=== PATIENT | male | born 1935 | race Caucasian/White ===

== ENCOUNTER 2024-03-21 23:05 | Inpatient (IN) | payer MEDICARE, OTHER ==
[2024-03-21] MEDS: SODIUM CHLORIDE 0.9% 2,000 ML IV ONE (23:59)
[2024-03-22 00:22] LABS: Basophils % (A) 0 %; Eosinophils # (A) 0.2 k/uL (0-0.7); Eosinophils % (A) 2 %; Hypochromasia Marked; Lymphocytes # (A) 0.8 k/uL (1.0-4.8); Lymphocytes % (A) 7 %; MCH 32.1 pg (25.0-35.0); MCHC 31.3 g/dL (31.0-37.0); MCV 102.8 fL (80.0-100.0); Macrocytosis Slight; Mean Platelet Volume 7.9; Monocytes # (A) 0.5 k/uL (0-1.0); Monocytes % (A) 5 %; Neutrophils # (A) 8.8 k/uL (1.3-7.7); Neutrophils % (A) 84 %; Platelet Count 220 k/uL (150-450); RBC 1.75 m/uL (4.30-5.90); RDW 13.9 % (11.5-15.5); WBC 10.4 k/uL (3.8-10.6)
--- NOTE | 2024-03-22 00:37 | CT ---
EXAM: CT Head Without Intravenous Contrast CLINICAL HISTORY: ITS.REASON CT Reason: fall TECHNIQUE: Axial computed tomography images of the head/brain without intravenous contrast. CTDI is 45.2 mGy and DLP is 1044 mGy-cm. This CT exam was performed using one or more of the following dose reduction techniques: automated exposure control, adjustment of the mA and/or kV according to patient size, and/or use of iterative reconstruction technique. COMPARISON: No relevant prior studies available. FINDINGS: Brain: Age-related cerebral volume loss. Periventricular and subcortical white matter hypoattenuation, consistent with chronic microangiopathy. No acute intracranial hemorrhage. No midline shift or mass effect. Ventricles: Unremarkable. No ventriculomegaly. Bones/joints: Unremarkable. No acute fracture. Soft tissues: Unremarkable. Sinuses: Unremarkable as visualized. No acute sinusitis. Mastoid air cells: Unremarkable as visualized. No mastoid effusion. IMPRESSION: No acute intracranial hemorrhage. No midline shift or mass effect. EXAM: CT Cervical Spine Without Intravenous Contrast CLINICAL HISTORY: ITS.REASON CT Reason: fall TECHNIQUE: Axial computed tomography images of the cervical spine without intravenous contrast. CTDI is 15.6 mGy and DLP is 421.2 mGy-cm. This CT exam was performed using one or more of the following dose reduction techniques: automated exposure control, adjustment of the mA and/or kV according to patient size, and/or use of iterative reconstruction technique. COMPARISON: No relevant prior studies available. FINDINGS: The vertebral body heights are maintained. The craniocervical junction is intact. The atlanto-dens interval is maintained. The dens is intact. There is no spondylolisthesis. Multilevel cervical spondylosis and degenerative disc disease. Straightening of the cervical lordosis. The unenhanced neck soft tissues are grossly unremarkable. The visualized lung apices are grossly clear. IMPRESSION: No acute fracture or subluxation of the cervical spine.
[2024-03-22 00:42] LABS: ALT 40 U/L (4-49); AST 27 U/L (17-59); African American GFR (CKD) 28 (>60 ml/min/1.73 sqM); Albumin 3.2 g/dL (3.5-5.0); Alkaline Phosphatase 91 U/L (38-126); Anion Gap 7 mmol/L; Blood Urea Nitrogen 41 mg/dL (9-20); Calcium 8.5 mg/dL (8.4-10.2); Carbon Dioxide 24 mmol/L (22-30); Chloride 111 mmol/L (98-107); Glucose 135 mg/dL (74-99); Non-African American GFR(CKD) 24 (>60 ml/min/1.73 sqM); Potassium 4.2 mmol/L (3.5-5.1); Sodium 142 mmol/L (137-145); Total Bilirubin 0.8 mg/dL (0.2-1.3); Total Protein 5.5 g/dL (6.3-8.2)
[2024-03-22 00:45] LABS: HGB 5.6 gm/dL (13.0-17.5)
--- NOTE | 2024-03-22 00:54 | XR ---
EXAM: XR Left Hip With Pelvis When Performed, 1 View CLINICAL HISTORY: ITS.REASON XR Reason: fall TECHNIQUE: Frontal view of the left hip with pelvis when performed. COMPARISON: No relevant prior studies available. FINDINGS: Bones/joints: Diffuse osseous demineralization. Osteophytic spurring of the acetabulum. No acute fracture or subluxation. Soft tissues: Surgical clips in the LEFT inguinal region. IMPRESSION: No acute fracture or subluxation.
[2024-03-22] MEDS ORDERED: MORPHINE SULFATE 4 MG/ML SYRINGE IV PRN (01:09)
[2024-03-22] MEDS ORDERED: NALOXONE 0.4 MG/ML 1 ML VIAL IV PRN (01:09)
--- NOTE | 2024-03-22 01:15 | ED ---
Weakness HPI - General Chief complaint: Fall Stated complaint: Fall, UTI Time Seen by Provider: 03/21/24 23:20 Source: patient, RN notes reviewed, old records reviewed Mode of arrival: wheelchair Limitations: no limitations - History of Present Illness Initial comments: This is an 88-year-old male to the ER today. He is presenting to us for evaluation regards to weakness multiple recent falls left hip pain, patient is recently diagnosed with urinary tract infection currently on antibiotics MD Complaint: generalized weakness, lack of energy, difficulty walking -: days(s) Location: generalized Severity scale (1-10): 5 Consistency: intermittent Improves with: none Worsens with: none Context: recent illness, history of similar Associated Symptoms: confusion (Dementia) - Related Data Home Medications Medication Instructions Recorded Confirmed Aspirin [Adult Low Dose Aspirin EC] 81 mg PO DAILY 03/22/24 03/22/24 Clopidogrel [Plavix] 75 mg PO DAILY 03/22/24 03/22/24 Finasteride [Proscar] 5 mg PO DAILY 03/22/24 03/22/24 Furosemide [Lasix] 40 mg PO BID@0900,1700 03/22/24 03/22/24 Losartan [Cozaar] 25 mg PO DAILY 03/22/24 03/22/24 Memantine [Namenda] 10 mg PO BID 03/22/24 03/22/24 Metoprolol Succinate (ER) [Toprol 25 mg PO DAILY 03/22/24 03/22/24 XL] Midodrine [ProAmatine] 5 mg PO BID 03/22/24 03/22/24 Potassium Chloride ER [K-Dur 20] 20 meq PO DAILY 03/22/24 03/22/24 Rosuvastatin Calcium 40 mg PO DAILY 03/22/24 03/22/24 cefUROXime axetiL [Ceftin] 500 mg PO BID 03/22/24 03/22/24 Allergies Allergy/AdvReac Type Severity Reaction Status Date / Time alprazolam [From Xanax] AdvReac Confusion Verified 03/22/24 08:13 clonazepam [From Klonopin] AdvReac Confusion Verified 03/22/24 08:13 haloperidol [From Haldol] AdvReac Confusion Verified 03/22/24 08:13 lorazepam [From Ativan] AdvReac Confusion Verified 03/22/24 08:13 Review of Systems ROS Statement: Those systems with pertinent positive or pertinent negative responses have been documented in the HPI. ROS Other: All systems not noted in ROS Statement are negative. General Exam General appearance: alert, in no apparent distress, anxious Head exam: Present: atraumatic, normocephalic, normal inspection Eye exam: Present: normal appearance, PERRL, EOMI. Absent: scleral icterus, conjunctival injection, periorbital swelling ENT exam: Present: normal exam, mucous membranes moist Neck exam: Present: normal inspection. Absent: tenderness, meningismus, lymphadenopathy Respiratory exam: Present: normal lung sounds bilaterally. Absent: respiratory distress, wheezes, rales, rhonchi, stridor Cardiovascular Exam: Present: regular rate, normal rhythm, normal heart sounds. Absent: systolic murmur, diastolic murmur, rubs, gallop, clicks GI/Abdominal exam: Present: soft, normal bowel sounds. Absent: distended, tenderness, guarding, rebound, rigid Extremities exam: Present: normal inspection, full ROM, normal capillary refill. Absent: tenderness, pedal edema, joint swelling, calf tenderness Back exam: Present: normal inspection Neurological exam: Present: alert, oriented X3, CN II-XII intact Psychiatric exam: Present: normal affect, normal mood Skin exam: Present: warm, dry, intact, normal color. Absent: rash Course Vital Signs 03/21/24 03/21/24 03/22/24 23:09 23:47 00:45 Temperature 98.6 F Pulse Rate 69 61 60 Respiratory 18 22 18 Rate Blood Pressure 90/57 86/34 74/34 O2 Sat by Pulse 100 98 95 Oximetry 03/22/24 03/22/24 03/22/24 01:00 01:36 02:15 Temperature Pulse Rate 70 71 71 Respiratory 18 18 18 Rate Blood Pressure 87/44 88/44 O2 Sat by Pulse 96 97 95 Oximetry - Reevaluation(s) Reevaluation #1: 03/22/24 01:14 Records reviewed Reevaluation #2: 03/22/24 01:14 Symptoms unchanged Reevaluation #3: 03/22/24 01:14 Patient informed of results and questions answered Reevaluation #4: Was pt. sent in by a medical professional or institution (, PA, METAL REFINER, urgent care, hospital, or prison...) When possible be specific @ -no Did you speak to anyone other than the patient for history (EMS, parent, family, police, friend...)? What history was obtained from this source @ -no Did you review nursing and triage notes (agree or disagree)? Why? @ -agree Are old charts reviewed (outside hosp., previous admission, EMS record, old EKG, old radiological studies, urgent care reports/EKG's, prison records)? Report findings @ -yes Differential Diagnosis (chest pain, altered mental status, abdominal pain women, abdominal pain men, vaginal bleeding, weakness, fever, dyspnea, syncope, headache, dizziness, GI bleed, back pain, seizure, CVA, palpatations, mental health, musculoskeletal)? @ -prior EKG interpreted by me (3pts min.). @ -yes X-rays interpreted by me (1pt min.). @ -yes negative for acute disease CT interpreted by me (1pt min.). @ -Yes negative for acute disease U/S interpreted by me (1pt. min.). @ -no What testing was considered but not performed or refused? (CT, X-rays, U/S, labs)? Why? @ -none What meds were considered but not given or refused? Why? @ -none Did you discuss the management of the patient with other professionals (professionals i.e. , PA, METAL REFINER, lab, RT, psych nurse, psychologist social, mass spectrometry manager, teacher, retirement officer, case packer and sealer)? Give summary @ -no Was smoking cessation discussed for >3mins.? @ -no Was critical care preformed (if so, how long)? @ -yes31 Were there social determinants of health that impacted care today? How? (Homelessness, low income, unemployed, alcoholism, drug addiction, transportation, low edu. Level, literacy, decrease access to med. care, skilled nursing, rehab)? @ -none Was there de-escalation of care discussed even if they declined (Discuss DNR or withdrawal of care, Hospice)? DNR status @ -no What co-morbidities impacted this encounter? (DM, HTN, Smoking, COPD, CAD, Cancer, CVA, ARF, Chemo, Hep., AIDS, mental health diagnosis, sleep apnea, morbid obesity)? @ -none Was patient admitted / discharged? Hospital course, mention meds given and route, prescriptions, significant lab abnormalities, going to OR and other [facility] info. @ - 88 male to ER for weakness and significant history of recent falls and increasing weakness for a few days now. Inpatient hospitalization recently for urinary tract infection and patient found to have significant anemia here in the emergency department. No history of GI bleed blood in the stool no tarry stools. Patient will will admit for transfusion and continued treatment of UTI Admitted anemia Undiagnosed new problem with uncertain prognosis? @ -no Drug Therapy requiring intensive monitoring for toxicity (Heparin, Nitro, Insulin, Cardizem)? @ -no Were any procedures done? @ -no Diagnosis/symptom? @ - Acute, or Chronic, or Acute on Chronic? @ -Acute Uncomplicated (without systemic symptoms) or Complicated (systemic symptoms)? @ -Complicated Side effects of treatment? @ -no Exacerbation, Progression, or Severe Exacerbation? @ -exacerbation Poses a threat to life or bodily function? How? (Chest pain, [place], [place], pneumonia, PE, COPD, DKA, ARF, appy, cholecystitis, CVA, Diverticulitis, Homicidal, Suicidal, threat to staff... and all critical care pts) @ -yes extremes of age Reevaluation #5: Differential Weakness: Hypoglycemia, shock, sepsis, hyponatremia, anemia, infection, [place], ETOH, adverse medicine reaction, overdose, stroke, this is not meant to be an all-inclusive list. - Consultations Consultation #1: Spoke with [facility] who agrees to admit this patient Medical Decision Making - Medical Decision Making 88 male to ER for weakness and significant history of recent falls and increasing weakness for a few days now. Inpatient hospitalization recently for urinary tract infection and patient found to have significant anemia here in the emergency department. No history of GI bleed blood in the stool no tarry stools. Patient will will admit for transfusion and continued treatment of UTI - Lab Data Result diagrams: 03/23/24 00:30 03/23/24 00:30 Lab Results 03/21/24 03/21/24 Range/Units 23:51 23:51 WBC 10.4 (3.8-10.6) k/uL RBC 1.75 L (4.30-5.90) m/uL Hgb 5.6 L* (13.0-17.5) gm/dL Hct 18.0 L* (39.0-53.0) % MCV 102.8 H (80.0-100.0) fL MCH 32.1 (25.0-35.0) pg MCHC 31.3 (31.0-37.0) g/dL RDW 13.9 (11.5-15.5) % Plt Count 220 (150-450) k/uL MPV 7.9 Neutrophils % 84 % Lymphocytes % 7 % Monocytes % 5 % Eosinophils % 2 % Basophils % 0 % Neutrophils # 8.8 H (1.3-7.7) k/uL Lymphocytes # 0.8 L (1.0-4.8) k/uL Monocytes # 0.5 (0-1.0) k/uL Eosinophils # 0.2 (0-0.7) k/uL Basophils # 0.0 (0-0.2) k/uL Hypochromasia Marked Macrocytosis Slight Sodium 142 (137-145) mmol/L Potassium 4.2 (3.5-5.1) mmol/L Chloride 111 H (98-107) mmol/L Carbon Dioxide 24 (22-30) mmol/L Anion Gap 7 mmol/L BUN 41 H (9-20) mg/dL Creatinine 2.35 H (0.66-1.25) mg/dL Est GFR (CKD-EPI)AfAm 28 (>60 ml/min/1.73 sqM) Est GFR (CKD-EPI)NonAf 24 (>60 ml/min/1.73 sqM) Glucose 135 H (74-99) mg/dL Calcium 8.5 (8.4-10.2) mg/dL Total Bilirubin 0.8 (0.2-1.3) mg/dL AST 27 (17-59) U/L ALT 40 (4-49) U/L Alkaline Phosphatase 91 (38-126) U/L Total Protein 5.5 L (6.3-8.2) g/dL Albumin 3.2 L (3.5-5.0) g/dL - EKG Data -: EKG Interpreted by Me - Radiology Data Radiology results: report reviewed (CT brain C-spine x-ray hip negative for traumatic injury), image reviewed Critical Care Time Critical Care Time: Yes Total Critical Care Time: 31 Disposition Clinical Impression: Fall, Weakness, Anemia, UTI (urinary tract infection) Disposition: ADMITTED IP TO THIS [facility] Condition: Serious Is patient prescribed a controlled substance at d/c from ED?: No Time of Disposition: 01:00
[2024-03-22] MEDS: SODIUM CHLORIDE 0.9% 1,000 ML IV SCH ×2 (01:54)
[2024-03-22] MEDS: SODIUM CHLORIDE 0.9% 500 ML 500 ML IV STA (01:54)
[2024-03-22] MEDS: MIDODRINE 5 MG TAB PO SCH (07:46)
[2024-03-22 08:11] LABS: Appearance,Urine Clear (Clear); Bacteria,Urine Occasional /hpf; Bilirubin,Urine Negative (Negative); Blood,Urine Small (Negative); Color,Urine Light Yellow; Glucose,Urine (UA) Negative (Negative); Ketones,Urine Negative (Negative); Leukocyte Esterase,Urine Negative (Negative); Mucus,Urine Rare /hpf; Nitrite,Urine Negative (Negative); PH, Urine 5.5 (5.0-8.0); Protein,Urine 1+ (Negative); RBC,Urine 1 /hpf (0-5); Specific Gravity,Urine 1.016 (1.001-1.035); Urobilinogen,Urine <2.0 mg/dL (<2.0); WBC,Urine 1 /hpf (0-5)
[2024-03-22] MEDS: FINASTERIDE 5 MG TAB PO SCH (10:18)
[2024-03-22] MEDS: ATORVASTATIN 80 MG TAB PO SCH (11:52)
[2024-03-22] MEDS: FUROSEMIDE 40 MG TAB PO SCH (11:52)
[2024-03-22] MEDS: METOPROLOL SUCCINATE (ER) 25 MG TAB.ER.24H PO SCH (11:52)
--- NOTE | 2024-03-22 13:34 | P.GSCN ---
History of Present Illness Consult date: 03/22/24 History of present illness: CHIEF COMPLAINT: Fall and weakness HISTORY OF PRESENT ILLNESS: This is a 88-year-old male who presented the hospital with weakness and fall. He was found to have a hemoglobin of 5.6. Patient is confused. Family member at bedside reporting no blood in the stools and no black stools. She denies any nausea and vomiting. No evidence of co ffee-ground emesis or hematemesis. Patient denies any abdominal pain. There is no prior history of EGD or colonoscopy. He has received a total of 3 units of blood. Patient has been hypotensive and has received both blood transfusion and IV fluid bolus. Repeat hemoglobin pending. Patient is on Plavix at home. Last dose of Plavix was March 20. Patient seen and examined with Dr. Hernandez PAST MEDICAL HISTORY: Hyperlipidemia ,hypertension, BPH PAST SURGICAL HISTORY: See below MEDICATIONS: See below ALLERGIES: See below SOCIAL HISTORY: No illicit drug use. REVIEW OF SYSTEMS: CONSTITUTIONAL: Denies fever or chills. HEENT: Denies blurred vision, vision changes, or eye pain. Denies hemoptysis CARDIOVASCULAR: Denies chest pain or pressure. RESPIRATORY: No shortness of breath. GASTROINTESTINAL: See HPI for pertinent findings HEMATOLOGIC: Denies bleeding disorders. GENITOURINARY: Denies any blood in urine or increased urinary frequency. SKIN: Denies pruitis. Denies rash. PHYSICAL EXAM: VITAL SIGNS: Reviewed GENERAL: Well-developed in no acute distress. HEENT: No sclera icterus. Extraocular movements grossly intact. Moist buccal mucosa. Head is atraumatic, normocephalic. No nasal drainage. ABDOMEN: Soft. Nondistended. Nontender NEUROLOGIC: Alert and oriented. Cranial nerves II through XII grossly intact. LABORATORY DATA: WBC 10.4 Hgb 5.6 platelets 220 Sodium 142 potassium 4.2 creatinine 2.35 BUN 41 IMAGING: CT scan of the head and cervical spine reports no acute intracranial hemorrhage. No acute fracture cervical spine ASSESSMENT: 1. Anemia concerns for possible GI bleed. Patient on Plavix at home. PLAN: -Patient scheduled for EGD and colonoscopy on Tuesday, March 26, [address] Hernandez -Continue to hold Plavix -Add IV Protonix -Continue to monitor for any signs or symptoms of bleeding -Continue to monitor hemoglobin Physician Pipe Setter note has been reviewed by physician. Signing provider agrees with the documented findings, assessment, and plan of care. Past Medical History Past Medical History: Coronary Artery Disease (CAD), Heart Failure, COPD, Dementia, Eye Disorder, Hyperlipidemia, Myocardial Infarction ([place]) Additional Past Medical History / Comment(s): Macular degeneration, [place] X2 Last Myocardial Infarction Date:: 1988 History of Any Multi-Drug Resistant Organisms: None Reported Past Surgical History: Coronary Bypass/CABG, Hernia Repair, Pacemaker Additional Past Surgical History / Comment(s): Double bypass 1979, triple bypass in 1989, AAA repair in 2000, pacermaker in 2001, hernia repair in 2008, bilateral endarterectomies 2019 Past Anesthesia/Blood Transfusion Reactions: No Reported Reaction Type of Cardiac Device: Permanent Pacemaker Device Placement Date:: 2001 Past Psychological History: No Psychological Hx Reported Smoking Status: Former smoker Past Alcohol Use History: None Reported Past Drug Use History: None Reported Medications and Allergies Home Medications Medication Instructions Recorded Confirmed Type Aspirin [Adult Low Dose Aspirin EC] 81 mg PO DAILY 03/22/24 03/22/24 History Clopidogrel [Plavix] 75 mg PO DAILY 03/22/24 03/22/24 History Finasteride [Proscar] 5 mg PO DAILY 03/22/24 03/22/24 History Furosemide [Lasix] 40 mg PO BID@0900,1700 03/22/24 03/22/24 History Losartan [Cozaar] 25 mg PO DAILY 03/22/24 03/22/24 History Memantine [Namenda] 10 mg PO BID 03/22/24 03/22/24 History Metoprolol Succinate (ER) [Toprol 25 mg PO DAILY 03/22/24 03/22/24 History XL] Midodrine [ProAmatine] 5 mg PO BID 03/22/24 03/22/24 History Potassium Chloride ER [K-Dur 20] 20 meq PO DAILY 03/22/24 03/22/24 History Rosuvastatin Calcium 40 mg PO DAILY 03/22/24 03/22/24 History cefUROXime axetiL [Ceftin] 500 mg PO BID 03/22/24 03/22/24 History Allergies Allergy/AdvReac Type Severity Reaction Status Date / Time alprazolam [From Xanax] AdvReac Confusion Verified 03/22/24 08:13 clonazepam [From Klonopin] AdvReac Confusion Verified 03/22/24 08:13 haloperidol [From Haldol] AdvReac Confusion Verified 03/22/24 08:13 lorazepam [From Ativan] AdvReac Confusion Verified 03/22/24 08:13 Surgical - Exam Vital Signs Temp Pulse Resp BP Pulse Ox 98.6 F 69 18 90/57 100 03/21/24 23:09 03/21/24 23:09 03/21/24 23:09 03/21/24 23:09 03/21/24 23:09 Results - Labs 03/21/24 23:51 03/21/24 23:51 Abnormal Lab Results - Last 24 Hours (Table) 03/21/24 03/21/24 03/22/24 Range/Units 23:51 23:51 01:15 RBC 1.75 L (4.30-5.90) m/uL Hgb 5.6 L* (13.0-17.5) gm/dL Hct 18.0 L* (39.0-53.0) % MCV 102.8 H (80.0-100.0) fL Neutrophils # 8.8 H (1.3-7.7) k/uL Lymphocytes # 0.8 L (1.0-4.8) k/uL Chloride 111 H (98-107) mmol/L BUN 41 H (9-20) mg/dL Creatinine 2.35 H (0.66-1.25) mg/dL Glucose 135 H (74-99) mg/dL Total Protein 5.5 L (6.3-8.2) g/dL Albumin 3.2 L (3.5-5.0) g/dL Urine Protein (Negative) Urine Blood (Negative) Urine Bacteria (None) /hpf Urine Mucus (None) /hpf Crossmatch See Detail 03/22/24 Range/Units 07:52 RBC (4.30-5.90) m/uL Hgb (13.0-17.5) gm/dL Hct (39.0-53.0) % MCV (80.0-100.0) fL Neutrophils # (1.3-7.7) k/uL Lymphocytes # (1.0-4.8) k/uL Chloride (98-107) mmol/L BUN (9-20) mg/dL Creatinine (0.66-1.25) mg/dL Glucose (74-99) mg/dL Total Protein (6.3-8.2) g/dL Albumin (3.5-5.0) g/dL Urine Protein 1+ H (Negative) Urine Blood Small H (Negative) Urine Bacteria Occasional H (None) /hpf Urine Mucus Rare H (None) /hpf Crossmatch Diabetes panel 03/21/24 Range/Units 23:51 Sodium 142 (137-145) mmol/L Potassium 4.2 (3.5-5.1) mmol/L Chloride 111 H (98-107) mmol/L Carbon Dioxide 24 (22-30) mmol/L BUN 41 H (9-20) mg/dL Creatinine 2.35 H (0.66-1.25) mg/dL Glucose 135 H (74-99) mg/dL Calcium 8.5 (8.4-10.2) mg/dL AST 27 (17-59) U/L ALT 40 (4-49) U/L Alkaline Phosphatase 91 (38-126) U/L Total Protein 5.5 L (6.3-8.2) g/dL Albumin 3.2 L (3.5-5.0) g/dL Calcium panel 03/21/24 Range/Units 23:51 Calcium 8.5 (8.4-10.2) mg/dL Albumin 3.2 L (3.5-5.0) g/dL Pituitary panel 03/21/24 Range/Units 23:51 Sodium 142 (137-145) mmol/L Potassium 4.2 (3.5-5.1) mmol/L Chloride 111 H (98-107) mmol/L Carbon Dioxide 24 (22-30) mmol/L BUN 41 H (9-20) mg/dL Creatinine 2.35 H (0.66-1.25) mg/dL Glucose 135 H (74-99) mg/dL Calcium 8.5 (8.4-10.2) mg/dL Adrenal panel 03/21/24 Range/Units 23:51 Sodium 142 (137-145) mmol/L Potassium 4.2 (3.5-5.1) mmol/L Chloride 111 H (98-107) mmol/L Carbon Dioxide 24 (22-30) mmol/L BUN 41 H (9-20) mg/dL Creatinine 2.35 H (0.66-1.25) mg/dL Glucose 135 H (74-99) mg/dL Calcium 8.5 (8.4-10.2) mg/dL Total Bilirubin 0.8 (0.2-1.3) mg/dL AST 27 (17-59) U/L ALT 40 (4-49) U/L Alkaline Phosphatase 91 (38-126) U/L Total Protein 5.5 L (6.3-8.2) g/dL Albumin 3.2 L (3.5-5.0) g/dL
[2024-03-22] MEDS: PANTOPRAZOLE 40 MG/10 ML VIAL IVP SCH (14:25)
[2024-03-22] MEDS: IOPAMIDOL CONTRAST (ORAL USE) VIAL PO PRN (14:57)
[2024-03-22 16:35] LABS: HCT 34.2 % (39.0-53.0); Hypochromasia Marked; MCH 31.7 pg (25.0-35.0); MCHC 31.5 g/dL (31.0-37.0); MCV 100.8 fL (80.0-100.0); Macrocytosis Slight; Mean Platelet Volume 7.8; Platelet Count 150 k/uL (150-450); RBC 3.39 m/uL (4.30-5.90); RDW 15.2 % (11.5-15.5); WBC 10.2 k/uL (3.8-10.6)
[2024-03-22 16:38] LABS: HGB 10.8 gm/dL (13.0-17.5)
--- NOTE | 2024-03-22 17:02 | P.CONS ---
History of Present Illness - Reason for Consult Consult date: 03/22/24 rehab recommendations - Chief Complaint debility - History of Present Illness Mr Han is an 88 y/o male who lives with his in a SS home with 3 MICHELLE b/l HR. Patient noted to have some falls recently. Patient was modified independent with ambulation using a cane, has a walker he has not been using. He needed assistance from his with ADLs. He does not drive, drives. Children live local. Patient presented to the hospital on 03/22/24 with complaints of weakness and recurrent falls. He was on abx for UTI outpatient. He had left hip pain after fall. He had CT head and C spine no acute process. Xray L hip negative for acute process. Surgical tea was consulted due to hgb 5.6, had 3 units PRBCs transfused. He has been having issues with hypotension. He is getting a CT scan today. He is planned for EGD and colonscopy on Tuesday PM&R consulted for rehab recommendations, patient is pending therapy evaluations. 03/22: Patient going down for cat scan, feels weak, has a cough. Review of Systems negative unless stated above in HPI Past Medical History Past Medical History: Coronary Artery Disease (CAD), Heart Failure, COPD, Dementia, Eye Disorder, Hyperlipidemia, Myocardial Infarction (AR) Additional Past Medical History / Comment(s): Macular degeneration, AR X2 Last Myocardial Infarction Date:: 1988 History of Any Multi-Drug Resistant Organisms: None Reported Past Surgical History: Coronary Bypass/CABG, Hernia Repair, Pacemaker Additional Past Surgical History / Comment(s): Double bypass 1979, triple bypass in 1989, AAA repair in 2000, pacermaker in 2001, hernia repair in 2008, bilateral endarterectomies 2019 Past Anesthesia/Blood Transfusion Reactions: No Reported Reaction Type of Cardiac Device: Permanent Pacemaker Device Placement Date:: 2001 Past Psychological History: No Psychological Hx Reported Smoking Status: Former smoker Past Alcohol Use History: None Reported Past Drug Use History: None Reported Medications and Allergies Home Medications Medication Instructions Recorded Confirmed Type Aspirin [Adult Low Dose Aspirin EC] 81 mg PO DAILY 03/22/24 03/22/24 History Clopidogrel [Plavix] 75 mg PO DAILY 03/22/24 03/22/24 History Finasteride [Proscar] 5 mg PO DAILY 03/22/24 03/22/24 History Furosemide [Lasix] 40 mg PO BID@0900,1700 03/22/24 03/22/24 History Losartan [Cozaar] 25 mg PO DAILY 03/22/24 03/22/24 History Memantine [Namenda] 10 mg PO BID 03/22/24 03/22/24 History Metoprolol Succinate (ER) [Toprol 25 mg PO DAILY 03/22/24 03/22/24 History XL] Midodrine [ProAmatine] 5 mg PO BID 03/22/24 03/22/24 History Potassium Chloride ER [K-Dur 20] 20 meq PO DAILY 03/22/24 03/22/24 History Rosuvastatin Calcium 40 mg PO DAILY 03/22/24 03/22/24 History cefUROXime axetiL [Ceftin] 500 mg PO BID 03/22/24 03/22/24 History Allergies Allergy/AdvReac Type Severity Reaction Status Date / Time alprazolam [From Xanax] AdvReac Confusion Verified 03/22/24 08:13 clonazepam [From Klonopin] AdvReac Confusion Verified 03/22/24 08:13 haloperidol [From Haldol] AdvReac Confusion Verified 03/22/24 08:13 lorazepam [From Ativan] AdvReac Confusion Verified 03/22/24 08:13 Physical Exam Vitals: Vital Signs Temp Pulse Pulse Resp BP BP Pulse Ox 03/22/24 12:58 63 15 103/57 97 03/22/24 11:34 66 17 108/57 96 03/22/24 10:04 66 18 110/58 95 03/22/24 09:44 70 16 117/65 98 03/22/24 09:34 71 17 93/44 97 03/22/24 08:43 67 17 95/57 97 03/22/24 07:45 97.6 F 66 16 101/53 100 03/22/24 06:25 97.9 F 67 17 91/49 98 03/22/24 06:05 97.4 F L 64 16 75/38 100 03/22/24 04:17 97.5 F L 60 17 85/45 100 03/22/24 03:25 97.6 F 63 18 73/40 100 03/22/24 03:05 97.4 F L 66 19 76/41 100 03/22/24 02:56 97.6 F 65 18 80/43 98 03/22/24 02:36 97.5 F L 68 20 79/42 99 03/22/24 02:15 71 18 95 03/22/24 01:36 71 18 88/44 97 03/22/24 01:00 70 18 87/44 96 03/22/24 00:45 60 18 74/34 95 03/21/24 23:47 61 22 86/34 98 03/21/24 23:09 98.6 F 69 18 90/57 100 Intake and Output 03/22/24 03/22/24 03/22/24 06:59 14:59 22:59 Intake Total 550 974 Output Total 200 250 Balance 350 724 Intake: Oral 240 354 Blood Product 310 620 Rc As-1 Unit 0 310 [id number] Rc As-1 Unit 310 [id number] Rc As-1 Unit 310 [id number] Output: Urine 200 250 Other: Voiding Method External Catheter External Catheter Weight 92.986 kg General: WDWN, male, laying in bed, NAD, and daughter at bedside Head: Normocephalic, atraumatic. Eyes: Symmetric Ears: Symmetric. Hearing within normal limits. Mouth: Clear. Cardiac: No acute cardiac distress, Calves supple, non tender, + LE edema Lungs: Breathing comfortably on O2 via NC, + cough. Chest symmetric. Abdomen: Soft, nontender, abdominal deformity from prior surgery, + hernia Extremities: Arthritic changes consistent with age. Neurological: Alert, [place] Speech is clear and fluent without paraphasic errors Generalized weakness, moves UE to antigravity Skin: Skin intact where visible to head, neck, and bilateral upper and lower extremities Psych: Calm, cooperative Results CBC & Chem 7: 03/22/24 15:51 03/21/24 23:51 Labs: Abnormal Lab Results - Last 24 Hours (Table) 03/21/24 03/21/24 03/22/24 Range/Units 23:51 23:51 01:15 RBC 1.75 L (4.30-5.90) m/uL Hgb 5.6 L* (13.0-17.5) gm/dL Hct 18.0 L* (39.0-53.0) % MCV 102.8 H (80.0-100.0) fL Neutrophils # 8.8 H (1.3-7.7) k/uL Lymphocytes # 0.8 L (1.0-4.8) k/uL Chloride 111 H (98-107) mmol/L BUN 41 H (9-20) mg/dL Creatinine 2.35 H (0.66-1.25) mg/dL Glucose 135 H (74-99) mg/dL Total Protein 5.5 L (6.3-8.2) g/dL Albumin 3.2 L (3.5-5.0) g/dL Urine Protein (Negative) Urine Blood (Negative) Urine Bacteria (None) /hpf Urine Mucus (None) /hpf Crossmatch See Detail 03/22/24 Range/Units 07:52 RBC (4.30-5.90) m/uL Hgb (13.0-17.5) gm/dL Hct (39.0-53.0) % MCV (80.0-100.0) fL Neutrophils # (1.3-7.7) k/uL Lymphocytes # (1.0-4.8) k/uL Chloride (98-107) mmol/L BUN (9-20) mg/dL Creatinine (0.66-1.25) mg/dL Glucose (74-99) mg/dL Total Protein (6.3-8.2) g/dL Albumin (3.5-5.0) g/dL Urine Protein 1+ H (Negative) Urine Blood Small H (Negative) Urine Bacteria Occasional H (None) /hpf Urine Mucus Rare H (None) /hpf Crossmatch Assessment and Plan Assessment: # Debility with multiple recent fall and left hip pain -imaging negative for acute process - fall precautions # Anemia s/p transfusion -pending EGD and colonoscopy -CT scan pending #Impaired gait and ADLs # Recent UTI -started on abx outpatient # Comorbidities: HLD, Dementia, BPH, CAD, pacemaker, HF, [place] x2, macular degeneration, HLD # Your medical dx and management Dispo: Patient is pending further medical work up and therapy evaluations. Patient at this time does not have a qualifying diagnosis for IPR, but could qualify for KERI. We will continue to follow his case as he is still in the medical work up phase in case this changes. Patient seen and examined by Carmen Marte PA-C in collaboration with Dr Taylor Thank you for consulting our services.
--- NOTE | 2024-03-22 17:18 | P.HPIM ---
History of Present Illness H&P Date: 03/22/24 Chief Complaint: Increased weakness decreased appetite This is a 88-year-old patient, follows with Dr. Radu Qiu. Most of the history is obtained by the at the bedside. Patient was seen recently discharged from [facility] on [facility] 4 days ago. He was there for UTI. Patient appetite has decreased. Patient progressively became more weak. At baseline patient does have a lift chair. Was not even able to get up and the could not help him. About a week ago he had taken a fall and had a lot of bleeding. At [facility] he was found to have anemia but not enough for blood transfusion. When he presented a hemoglobin was 5.6. 3 units of blood was ordered from the ER. No overt evidence of bleeding or black stools or blood per rectum noted here. Today actually ate a bit better. Patient has underlying dementia. Delirious today. Patient has a pacemaker and has a stent in 2020. Review of systems difficult to obtain as patient is somewhat confused. Most of the history obtained above from the . Social history: Former smoker. Lives with his . Physical examination: VITAL SIGNS: 97.6, 67, 17, 95/57, 97% on 3 L GENERAL: BMI 32.1, laying in bed, somewhat delirious. EYES: Pupils equal. Conjunctiva rashaad l. HEENT: External appearance of nose and ears normal, oral cavity grossly normal. NECK: JVD unable to assess raised; masses not palpable. HEART: First and second heart sounds are normal some edema. LUNGS: Respiratory rate normal; decreased breath sounds n. ABDOMEN: Soft, distended nontender, liver spleen not palpable, no masses palpable. PSYCH: Patient may answer occasional question otherwise delirious l. MUSCULOSKELETAL:No Clubbing/cyanosis;muscles-grossly intact NEUROLOGICAL: Cranial nerves grossly intact; no facial asymmetry, power and sensation grossly intact. LYMPHATICS: No lymph nodes palpable in the axilla and neck INVESTIGATIONS, reviewed in the clinical context: March 22: White count 10.2 hemoglobin 10.8 platelets 150 March 21: White count 10.4 hemoglobin 5.6 hemoglobin 220 potassium 4.2 BUN [address] head cervical spine: Negative for fracture Assessment plan: -Acute severe blood loss anemia. Patient has significant bleeding about a week ago. After a fall. Required stitches to the arm. He was admitted to [facility] for UTI. Now presents with hemoglobin of 5.6. No further bleeding reported. 3 units of blood ordered from the ER. -Acute delirium in a patient with dementia multifactorial Will try Risperdal at night. Discussed with the at length. -Late onset Alzheimer's dementia Namenda -Rule out other source of bleed. GI services not available in the hospital. General surgery consulted -Coronary artery disease prior history of stent in February 2021. And coronary bypass in 1987 9089 Hold off aspirin and Plavix for now -Permanent pacemaker -Chronic congestive heart failure, EF not known -COPD no prior smoker -Hyperlipidemia -DVT prophylaxis SCD -Full code - is a decision maker for the patient. Does not have any official papers. Asked to do so. Care was discussed at length with the patient. Questions answered. Dr Hernandez consulted. Past Medical History Past Medical History: Coronary Artery Disease (CAD), Heart Failure, COPD, Dementia, Eye Disorder, Hyperlipidemia, Myocardial Infarction (AR) Additional Past Medical History / Comment(s): Macular degeneration, AR X2 Last Myocardial Infarction Date:: 1988 History of Any Multi-Drug Resistant Organisms: None Reported Past Surgical History: Coronary Bypass/CABG, Hernia Repair, Pacemaker Additional Past Surgical History / Comment(s): Double bypass 1979, triple bypass in 1989, AAA repair in 2000, pacermaker in 2001, hernia repair in 2008, bilateral endarterectomies 2019 Past Anesthesia/Blood Transfusion Reactions: No Reported Reaction Type of Cardiac Device: Permanent Pacemaker Device Placement Date:: 2001 Past Psychological History: No Psychological Hx Reported Smoking Status: Former smoker Past Alcohol Use History: None Reported Past Drug Use History: None Reported Medications and Allergies Home Medications Medication Instructions Recorded Confirmed Type Aspirin [Adult Low Dose Aspirin EC] 81 mg PO DAILY 03/22/24 03/22/24 History Clopidogrel [Plavix] 75 mg PO DAILY 03/22/24 03/22/24 History Finasteride [Proscar] 5 mg PO DAILY 03/22/24 03/22/24 History Furosemide [Lasix] 40 mg PO BID@0900,1700 03/22/24 03/22/24 History Losartan [Cozaar] 25 mg PO DAILY 03/22/24 03/22/24 History Memantine [Namenda] 10 mg PO BID 03/22/24 03/22/24 History Metoprolol Succinate (ER) [Toprol 25 mg PO DAILY 03/22/24 03/22/24 History XL] Midodrine [ProAmatine] 5 mg PO BID 03/22/24 03/22/24 History Potassium Chloride ER [K-Dur 20] 20 meq PO DAILY 03/22/24 03/22/24 History Rosuvastatin Calcium 40 mg PO DAILY 03/22/24 03/22/24 History cefUROXime axetiL [Ceftin] 500 mg PO BID 03/22/24 03/22/24 History Allergies Allergy/AdvReac Type Severity Reaction Status Date / Time alprazolam [From Xanax] AdvReac Confusion Verified 03/22/24 08:13 clonazepam [From Klonopin] AdvReac Confusion Verified 03/22/24 08:13 haloperidol [From Haldol] AdvReac Confusion Verified 03/22/24 08:13 lorazepam [From Ativan] AdvReac Confusion Verified 03/22/24 08:13 Physical Exam Vitals: Vital Signs Temp Pulse Pulse Resp BP BP Pulse Ox 03/22/24 09:44 70 16 117/65 98 03/22/24 09:34 71 17 93/44 97 03/22/24 08:43 67 17 95/57 97 03/22/24 07:45 97.6 F 66 16 101/53 100 03/22/24 06:25 97.9 F 67 17 91/49 98 03/22/24 06:05 97.4 F L 64 16 75/38 100 03/22/24 04:17 97.5 F L 60 17 85/45 100 03/22/24 03:25 97.6 F 63 18 73/40 100 03/22/24 03:05 97.4 F L 66 19 76/41 100 03/22/24 02:56 97.6 F 65 18 80/43 98 03/22/24 02:36 97.5 F L 68 20 79/42 99 03/22/24 02:15 71 18 95 03/22/24 01:36 71 18 88/44 97 03/22/24 01:00 70 18 87/44 96 03/22/24 00:45 60 18 74/34 95 03/21/24 23:47 61 22 86/34 98 03/21/24 23:09 98.6 F 69 18 90/57 100 Intake and Output 03/21/24 03/22/24 03/22/24 22:59 06:59 14:59 Intake Total 550 664 Output Total 200 250 Balance 350 414 Intake: Oral 240 354 Blood Product 310 310 Rc As-1 Unit 0 310 [id number] Rc As-1 Unit 310 [id number] Rc As-1 Unit 0 [id number] Output: Urine 200 250 Other: Voiding Method External Catheter External Catheter Weight 92.986 kg Results CBC & Chem 7: 03/22/24 15:51 03/21/24 23:51 Labs: Abnormal Lab Results - Last 24 Hours (Table) 03/21/24 03/21/24 03/22/24 Range/Units 23:51 23:51 01:15 RBC 1.75 L (4.30-5.90) m/uL Hgb 5.6 L* (13.0-17.5) gm/dL Hct 18.0 L* (39.0-53.0) % MCV 102.8 H (80.0-100.0) fL Neutrophils # 8.8 H (1.3-7.7) k/uL Lymphocytes # 0.8 L (1.0-4.8) k/uL Chloride 111 H (98-107) mmol/L BUN 41 H (9-20) mg/dL Creatinine 2.35 H (0.66-1.25) mg/dL Glucose 135 H (74-99) mg/dL Total Protein 5.5 L (6.3-8.2) g/dL Albumin 3.2 L (3.5-5.0) g/dL Urine Protein (Negative) Urine Blood (Negative) Urine Bacteria (None) /hpf Urine Mucus (None) /hpf Crossmatch See Detail 03/22/24 Range/Units 07:52 RBC (4.30-5.90) m/uL Hgb (13.0-17.5) gm/dL Hct (39.0-53.0) % MCV (80.0-100.0) fL Neutrophils # (1.3-7.7) k/uL Lymphocytes # (1.0-4.8) k/uL Chloride (98-107) mmol/L BUN (9-20) mg/dL Creatinine (0.66-1.25) mg/dL Glucose (74-99) mg/dL Total Protein (6.3-8.2) g/dL Albumin (3.5-5.0) g/dL Urine Protein 1+ H (Negative) Urine Blood Small H (Negative) Urine Bacteria Occasional H (None) /hpf Urine Mucus Rare H (None) /hpf Crossmatch Thrombosis Risk Factor Assmnt - Choose All That Apply Any of the Below Risk Factors Present?: Yes Other Risk Factors: Yes Each Risk Factor Represents 3 Points: Age 75 years or older Thrombosis Risk Factor Assessment Total Risk Factor Score: 3 Thrombosis Risk Factor Assessment Level: Moderate Risk
--- NOTE | 2024-03-22 17:35 | CT ---
EXAMINATION TYPE: CT abdomen pelvis wo con DATE OF EXAM: 03/22/2024 COMPARISON: None HISTORY: abdominal pain, anemia CT DLP: 1352.4 mGycm Examination of the solid and hollow viscera is limited given the lack of contrast. FINDINGS: LUNG BASES: No evidence for nodule. No evidence for infiltrate. Small basilar effusions and probable compressive atelectasis. Cardiomegaly noted. LIVER/GB: There is evidence of cholelithiasis with gallbladder wall thickening and mild pericholecyst ic stranding. Acute cholecystitis is difficult to exclude. No definite calculus seen along the expect ed course of the common bile duct. No space-occupying hepatic lesion. PANCREAS: No pancreatic mass identified. No inflammatory process seen. SPLEEN: No evidence for splenomegaly. No intrasplenic lesions seen. Splenic granulomas identified. ADRENALS: No adrenal nodules identified. No evidence for thickening. KIDNEYS: No evidence for renal mass. No nephrolithiasis. No hydronephrosis. BOWEL: There is stranding adjacent to the ascending colonic/sigmoid colonic junction which may reflec t mild acute diverticulitis. No evidence for free air. Lymph nodes: No evidence for adenopathy greater than 1 cm. Abdominal aorta: Atheromatous changes seen. Abdominal aortic aneurysm measuring 3.4 cm AP dimension. Genital organs: No significant abnormality. Other: [place] ventral hernia contains portions of the stomach and colon. There is additional left paramedian [place] ventral hernia which contains multiple loops of small bowel. No evidence for str angulation at this time. Severe degenerative changes lumbar spine. IMPRESSION: 1. Suspect mild uncomplicated acute diverticulitis at the descending colonic/sigmoid colonic junction . 2. I cannot exclude acute cholecystitis. 3. Multiple ventral hernias as noted above. 4. Abdominal aortic aneurysm.
--- NOTE | 2024-03-22 18:07 | XR ---
EXAMINATION TYPE: XR chest 1V portable DATE OF EXAM: 03/22/2024 HISTORY: Shortness of breath. COMPARISON: None. TECHNIQUE: Single view of the chest is submitted. FINDINGS: Demonstrated are scattered senescent parenchymal change. There is cardiomegaly with pulmonary venous congestion and scattered areas of infiltrate which may re flect acute pulmonary edema. Layering pleural effusion on the right and/or pleural parenchymal thicke shabbir. Hilar and mediastinal structures are within normal limits. Degenerative changes are seen of the dorsal spine. IMPRESSION: 1. Correlate for congestive failure.
[2024-03-22] MEDS: risperiDONE 0.5 MG TAB PO SCH (20:59)
[2024-03-22] MEDS: MEMANTINE 10 MG TAB PO SCH (20:59)
[2024-03-22 23:14] LABS: Glucose,Whole Blood 145 mg/dL (70-110)
[2024-03-23] MEDS: SODIUM CHLORIDE 0.9% 250 ML IV SCH ×2
[2024-03-23 01:43] LABS: Basophils % (A) 0 %; Eosinophils # (A) 0.2 k/uL (0-0.7); Eosinophils % (A) 3 %; HCT 33.2 % (39.0-53.0); HGB 10.6 gm/dL (13.0-17.5); Hypochromasia Marked; Lymphocytes # (A) 0.6 k/uL (1.0-4.8); Lymphocytes % (A) 8 %; MCH 32.1 pg (25.0-35.0); MCHC 31.9 g/dL (31.0-37.0); MCV 100.4 fL (80.0-100.0); Macrocytosis Slight; Mean Platelet Volume 7.9; Monocytes # (A) 0.5 k/uL (0-1.0); Monocytes % (A) 6 %; Neutrophils # (A) 6.1 k/uL (1.3-7.7); Neutrophils % (A) 82 %; Platelet Count 145 k/uL (150-450); RBC 3.31 m/uL (4.30-5.90); RDW 15.1 % (11.5-15.5); WBC 7.5 k/uL (3.8-10.6)
[2024-03-23 02:13] LABS: African American GFR (CKD) 32 (>60 ml/min/1.73 sqM); Anion Gap 6 mmol/L; Blood Urea Nitrogen 39 mg/dL (9-20); Calcium 7.8 mg/dL (8.4-10.2); Carbon Dioxide 21 mmol/L (22-30); Chloride 115 mmol/L (98-107); Glucose 112 mg/dL (74-99); Non-African American GFR(CKD) 28 (>60 ml/min/1.73 sqM); Potassium 4.6 mmol/L (3.5-5.1); Sodium 142 mmol/L (137-145)
[2024-03-23 06:35] LABS: Basophils % (A) 0 %; Eosinophils # (A) 0.3 k/uL (0-0.7); Eosinophils % (A) 3 %; HCT 33.7 % (39.0-53.0); HGB 10.2 gm/dL (13.0-17.5); Hypochromasia Marked; Lymphocytes # (A) 0.5 k/uL (1.0-4.8); Lymphocytes % (A) 7 %; MCH 30.6 pg (25.0-35.0); MCHC 30.4 g/dL (31.0-37.0); MCV 100.6 fL (80.0-100.0); Macrocytosis Slight; Mean Platelet Volume 8.1; Monocytes # (A) 0.5 k/uL (0-1.0); Monocytes % (A) 6 %; Neutrophils # (A) 6.4 k/uL (1.3-7.7); Neutrophils % (A) 82 %; Platelet Count 121 k/uL (150-450); RBC 3.35 m/uL (4.30-5.90); RDW 15.6 % (11.5-15.5); WBC 7.8 k/uL (3.8-10.6)
[2024-03-23 06:53] LABS: ALT 68 U/L (4-49); AST 62 U/L (17-59); African American GFR (CKD) 31 (>60 ml/min/1.73 sqM); Albumin 2.9 g/dL (3.5-5.0); Alkaline Phosphatase 132 U/L (38-126); Anion Gap 6 mmol/L; Blood Urea Nitrogen 37 mg/dL (9-20); Calcium 7.9 mg/dL (8.4-10.2); Carbon Dioxide 23 mmol/L (22-30); Chloride 113 mmol/L (98-107); Glucose 104 mg/dL (74-99); Non-African American GFR(CKD) 27 (>60 ml/min/1.73 sqM); Phosphorus 4.1 mg/dL (2.5-4.5); Sodium 142 mmol/L (137-145); Total Bilirubin 1.1 mg/dL (0.2-1.3); Total Protein 5.1 g/dL (6.3-8.2)
[2024-03-23] MEDS: ACETAMINOPHEN TAB 500 MG TAB PO PRN (08:51)
--- NOTE | 2024-03-23 14:26 | P.PN ---
Progress Note - Text Progress Note Date: 03/23/24 Chief Complaint: Increased weakness decreased appetite This is a 88-year-old patient, follows with Dr. Radu Qiu. Most of the history is obtained by the at the bedside. Patient was seen recently discharged from [facility] 4 days ago. He was there for UTI. Patient appetite has decreased. Patient progressively became more weak. At baseline patient does have a lift chair. Was not even able to get up and the could not help him. About a week ago he had taken a fall and had a lot of bleeding. At [facility] he was found to have anemia but not enough for blood transfusion. When he presented a hemoglobin was 5.6. 3 units of blood was ordered from the ER. No overt evidence of bleeding or black stools or blood per rectum noted here. Today actually ate a bit better. Patient has underlying dementia. Delirious today. Patient has a pacemaker and has a stent in 2020. March 23: Received Risperdal last night. Patient did wake up 2-3 times last night. Declined to eat this morning. Active Medications Acetaminophen (Acetaminophen Tab 500 Mg Tab) 500 mg PO Q8HR PRN PRN Reason: Fever and/ or Pain Last Admin: 03/23/24 08:51 Dose: 500 mg Atorvastatin Calcium (Atorvastatin 80 Mg Tab) 80 mg PO DAILY [facility] Last Admin: 03/23/24 08:51 Dose: 80 mg Finasteride (Finasteride 5 Mg Tab) 5 mg PO DAILY [facility] Last Admin: 03/23/24 08:51 Dose: 5 mg Furosemide (Furosemide 40 Mg Tab) 40 mg PO BID@0900,1700 [facility] Last Admin: 03/23/24 08:51 Dose: 40 mg Memantine (Memantine 10 Mg Tab) 10 mg PO BID [facility] Last Admin: 03/23/24 08:51 Dose: 10 mg Metoprolol Succinate (Metoprolol Succinate (Er) 25 Mg Tab.Er.24h) 25 mg PO DAILY [facility] Last Admin: 03/23/24 08:51 Dose: 25 mg Midodrine (Midodrine 5 Mg Tab) 5 mg PO AC-BID [facility] Last Admin: 03/23/24 06:20 Dose: 5 mg Naloxone HCl (Naloxone 0.4 Mg/Ml 1 Ml Vial) 0.2 mg IV Q2M PRN PRN Reason: Opioid Reversal Pantoprazole Sodium (Pantoprazole 40 Mg/10 Ml Vial) 40 mg IVP DAILY [facility] Last Admin: 03/23/24 08:51 Dose: 40 mg Polyethylene Glycol/Electrolytes (Peg 3350 (236 Gm/Btl) + Lytes 4,000 Ml Bottle) 4,000 ml PO ONCE ONE Stop: 03/25/24 09:01 Risperidone (Risperidone 0.5 Mg Tab) 0.5 mg PO HS [facility] Last Admin: 03/22/24 20:59 Dose: 0.5 mg Social history: Former smoker. Lives with his . Physical examination: VITAL SIGNS: 97.9, 74, 20, 91/53, 94% on 3 L GENERAL: BMI 32.1, laying in bed, some delirium EYES: Pupils equal. Conjunctiva rashaad l. HEENT: External appearance of nose and ears normal, oral cavity grossly normal. NECK: JVD unable to assess raised; masses not palpable. HEART: First and second heart sounds are normal some edema. LUNGS: Respiratory rate normal; decreased breath sounds n. ABDOMEN: Soft, distended nontender, liver spleen not palpable, no masses palpable. PSYCH: Patient may answer occasional question otherwise delirious l. MUSCULOSKELETAL:No Clubbing/cyanosis;muscles-grossly intact INVESTIGATIONS, reviewed in the clinical context: March 23: White count 7.8 hemoglobin 10.2 platelets 121 potassium 4 BUN 37 creatinine 2.11 AST 62 ALT 68 March 22: White count 10.2 hemoglobin 10.8 platelets 150 March 21: White count 10.4 hemoglobin 5.6 hemoglobin 220 potassium 4.2 BUN [address] head cervical spine: Negative for fracture Assessment plan: -Acute severe blood loss anemia. Patient has significant bleeding about a week ago. After a fall. Required stitches to the arm. He was admitted to [facility] for UTI. Now presents with hemoglobin of 5.6. No further bleeding reported. 3 units of blood ordered from the ER. -Acute delirium in a patient with dementia multifactorial Risperdal 0.5 mg nightly. Increase 0.75 mg nightly -Late onset Alzheimer's dementia Namenda -Rule out other source of bleed. GI services not available in the hospital. Per surgery: Scheduled for EGD colonoscopy on Tuesday -Coronary artery disease prior history of stent in February 2021. And coronary bypass in 1987 9089 Aspirin and plavix held -Permanent pacemaker -Chronic congestive heart failure, EF not known -COPD no prior smoker -Hyperlipidemia -DVT prophylaxis SCD -Full code - is a decision maker for the patient. Does not have any official papers. Asked to do so. Increase Risperdal. Other medications to continue Past Medical History Past Medical History: Coronary Artery Disease (CAD), Heart Failure, COPD, Dementia, Eye Disorder, Hyperlipidemia, Myocardial Infarction ([place]) Additional Past Medical History / Comment(s): Macular degeneration, [place] X2 Last Myocardial Infarction Date:: 1988 History of Any Multi-Drug Resistant Organisms: None Reported Past Surgical History: Coronary Bypass/CABG, Hernia Repair, Pacemaker Additional Past Surgical History / Comment(s): Double bypass 1979, triple bypass in 1989, AAA repair in 2000, pacermaker in 2001, hernia repair in 2008, bilateral endarterectomies 2019 Past Anesthesia/Blood Transfusion Reactions: No Reported Reaction Type of Cardiac Device: Permanent Pacemaker Device Placement Date:: 2001 Past Psychological History: No Psychological Hx Reported Smoking Status: Former smoker Past Alcohol Use History: None Reported Past Drug Use History: None Reported
--- NOTE | 2024-03-23 17:35 | CA ---
Transthoracic Echo Report Name: Bang Han Age: 88 Gender: M : 1935 Exam Date: 03/23/2024 10:01 Exam Location: [facility] Ht (in): 67 Wt (lb): 205 Ordering Physician: Popeye Bowles MD Attending/Referring Phys: Composition Floor Layer Mellissa Christiansen RDCS Procedure CPT: Indications: chf Cardiac Hx: Technical Quality: Poor, Technically difficult study Contrast 1: Definity Total Dose (mL): Contrast 2: Total Dose (mL): MEASUREMENTS (Male / Female) Normal Values 2D ECHO LV Diastolic Diameter PLAX 5.7 cm 4.2 - 5.9 / 3.9 - 5.3 cm LV Systolic Diameter PLAX 4.3 cm IVS Diastolic Thickness 1.2 cm 0.6 - 1.0 / 0.6 - 0.9 cm LVPW Diastolic Thickness 1.2 cm 0.6 - 1.0 / 0.6 - 0.9 cm LV Relative Wall Thickness 0.4 RV Internal Dim ED PLAX 2.4 cm LA Systolic Diameter LX 5.2 cm 3.0 - 4.0 / 2.7 - 3.8 cm LV Diastolic Volume MOD 4C 73.8 cm??? LV Systolic Volume MOD 4C 58.4 cm??? LV Ejection Fraction MOD 4C 20.8 % LV Cardiac Index MOD 4C 816.9 cm???/min???m??? LV Diastolic Length 4C 7.0 cm LV Systolic Length 4C 7.0 cm M-MODE Aortic Root Diameter MM 3.4 cm LA Systolic Diameter MM 5.4 cm LA Ao Ratio MM 1.6 AV Cusp Separation MM 2.0 cm DOPPLER AV Peak Velocity 108.6 cm/s AV Peak Gradient 4.7 mmHg AV Mean Velocity 74.0 cm/s AV Mean Gradient 2.5 mmHg AV Velocity Time Integral 24.9 cm Mitral E Point Velocity 61.5 cm/s Mitral A Point Velocity 54.2 cm/s Mitral E to A Ratio 1.1 MV Deceleration Time 237.4 ms MV E' Velocity 8.4 cm/s Mitral E to MV E' Ratio 7.4 TR Peak Velocity 345.9 cm/s TR Peak Gradient 47.8 mmHg Right Atrial Pressure 15.0 mmHg Pulmonary Artery Systolic Pressu 62.8 mmHg Right Ventricular Systolic Press 62.8 mmHg FINDINGS Left Ventricle Left ventricular ejection fraction is estimated at 40-%. Mildly increased septal wall thickness. [place] hypokinetic. Left ventricular cavity size normal. Right Ventricle Moderate right ventricular dilatation. Severe pulmonary hypertension. Right ventricular systolic pressure estimated at 62 mmHg. Right Atrium Moderate right atrial dilatation. Catheter/pacemaker wire in the right atrial cavity. Left Atrium Moderately increased left atrial diameter. Mitral Valve Structurally normal mitral valve. Trace mitral regurgitation. Aortic Valve Trileaflet aortic valve. No aortic valve stenosis or regurgitation. Diffuse thickening (sclerosis) of the aortic valve cusps without reduced excursion. Tricuspid Valve Structurally normal tricuspid valve. Moderate tricuspid regurgitation. Pulmonic Valve Structurally normal pulmonic valve. Trace pulmonic regurgitation. No pulmonic stenosis. Pericardium No pericardial or pleural effusion. Aorta Normal size aortic root and proximal ascending aorta. CONCLUSIONS Moderate LV systolic dysfunction with an ejection fraction of 40% Anteroseptal hypokinesis suggestive of prior myocardial infarction Severe pulmonary hypertension Moderate tricuspid regurgitation Previewed by: Dr. Darrick Ray MD (Electronically Signed) Final Date: 23 March 2024 17:34
[2024-03-23] MEDS: risperiDONE 0.25 MG TAB PO SCH (20:15)
--- NOTE | 2024-03-24 08:42 | P.PN ---
Subjective Progress Note Date: 03/23/24 CHIEF COMPLAINT: Anemia HISTORY OF PRESENT ILLNESS: The patient is a 88-year-old male admitted for anem ia, hemoglobin 5.6. Patient is resting comfortably. No reports of hematemesis or hematochezia. He was transfused 3 units of blood. ROS: No reports of nausea and vomiting. No fevers or chills. No new chest pain. History of Plavix use for coronary artery disease. History of myocardial infarction PHYSICAL EXAM: VITAL SIGNS: Reviewed CONSTITUTIONAL: Well developed and in no acute distress. EYES: Conjuctivae without sclera icterus. Extraocular movements grossly intact. HEAD, EARS, NOSE, THROAT: Moist buccal mucosa. Head is atraumatic, normocephalic. Hears conversational speech. No nasal drainage. RESPIRATORY: Non-labored respirations and equal bilateral excursions. CARDIOVASCULAR: Palpable 2+ radial pulses. ABDOMEN: No peritonitis. MUSCULOSKELETAL: No gross deformity of the lower extremities noted. No clubbing. No cyanosis. SKIN: Good skin turgor. Well perfused. NEUROLOGIC: Cranial nerves II through XII grossly intact. No focal or lateralizing signs. PSYCH: Alert and oriented to person.. CLINICAL LABS: Reviewed. Hemoglobin of 5.6-10.2. ASSESSMENT: 1. Acute blood loss anemia 2. Coronary artery disease 3. Chronic antiplatelet therapy 4. History of myocardial infarction PLAN: 1. Upper endoscopy and colonoscopy for acute anemia. 2. Hold antiplatelet therapy including anticoagulants. 3. Monitor for signs of bleeding. Objective - Vital Signs Vital signs: Vital Signs Temp 98 F 03/23/24 20:00 Pulse 87 03/24/24 03:52 Resp 18 03/24/24 03:52 BP 110/56 03/24/24 03:52 Pulse Ox 96 03/24/24 03:52 FiO2 Intake & Output 03/23/24 03/24/24 03/24/24 18:59 06:59 18:59 Intake Total 260 540 Output Total 450 450 Balance -190 90 Weight 61.5 kg Intake: IV 20 Invasive Line 1 10 Invasive Line 2 10 Oral 240 540 Output: Urine 450 450 Other: Voiding Method External Catheter External Catheter - Labs CBC & Chem 7: 03/23/24 06:12 03/23/24 06:12 Labs: Microbiology - Last 24 Hours (Table) 03/21/24 23:30 Blood Culture - Preliminary Blood 03/21/24 23:51 Blood Culture - Preliminary Blood
[2024-03-24] MEDS: risperiDONE 0.5 MG TAB PO SCH (13:37)
[2024-03-24] MEDS ORDERED: ENOXAPARIN 40 MG/0.4 ML SYRINGE SQ SCH (18:15)
--- NOTE | 2024-03-24 18:17 | P.PN ---
Progress Note - Text Progress Note Date: 03/24/24 Chief Complaint: Increased weakness decreased appetite This is a 88-year-old patient, follows with Dr. Radu Qiu. Most of the history is obtained by the at the bedside. Patient was seen recently discharged from [facility] on [address] 4 days ago. He was there for UTI. Patient appetite has decreased. Patient progressively became more weak. At baseline patient does have a lift chair. Was not even able to get up and the could not help him. About a week ago he had taken a fall and had a lot of bleeding. At [facility] he was found to have anemia but not enough for blood transfusion. When he presented a hemoglobin was 5.6. 3 units of blood was ordered from the ER. No overt evidence of bleeding or black stools or blood per rectum noted here. Today actually ate a bit better. Patient has underlying dementia. Delirious today. Patient has a pacemaker and has a stent in 2020. March 23: Received Risperdal last night. Patient did wake up 2-3 times last night. Declined to eat this morning. March 24: Had a lengthy discussion patient's at the bedside. Lucina son also joined. Dose of Risperdal are discussed. Initially was decided to cut back dose 0.5 mg. Later the nurse called to say that family would prefer to stop the Risperdal. Has discontinued. Patient rather sleepy this morning from overnight. Sleep hygiene/sleep cycle discussed pending endoscopy by surgery on Tuesday Active Medications Acetaminophen (Acetaminophen Tab 500 Mg Tab) 500 mg PO Q8HR PRN PRN Reason: Fever and/ or Pain Last Admin: 03/23/24 08:51 Dose: 500 mg Atorvastatin Calcium (Atorvastatin 80 Mg Tab) 80 mg PO DAILY [facility] Last Admin: 03/24/24 10:26 Dose: Not Given Finasteride (Finasteride 5 Mg Tab) 5 mg PO DAILY [facility] Last Admin: 03/24/24 10: Dose: Not Given Furosemide (Furosemide 40 Mg Tab) 40 mg PO BID@0900,1700 [facility] Last Admin: 03/24/24 16:18 Dose: 40 mg Metoprolol Succinate (Metoprolol Succinate (Er) 25 Mg Tab.Er.24h) 25 mg PO DAILY [facility] Last Admin: 03/24/24 10:27 Dose: Not Given Midodrine (Midodrine 5 Mg Tab) 5 mg PO AC-BID [facility] Last Admin: 03/24/24 16:18 Dose: 5 mg Naloxone HCl (Naloxone 0.4 Mg/Ml 1 Ml Vial) 0.2 mg IV Q2M PRN PRN Reason: Opioid Reversal Pantoprazole Sodium (Pantoprazole 40 Mg Tablet) 40 mg PO AC-BRKFST [facility] Polyethylene Glycol/Electrolytes (Peg 3350 (236 Gm/Btl) + Lytes 4,000 Ml Bottle) 4,000 ml PO ONCE ONE Stop: 03/25/24 09:01 Social history: Former smoker. Lives with his . Physical examination: VITAL SIGNS: 22, 104/57, 95% on 4 L GENERAL: Rather sleepy this morning EYES: Pupils equal. Conjunctiva rashaad l. HEENT: External appearance of nose and ears normal, oral cavity grossly normal. NECK: JVD unable to assess raised; masses not palpable. HEART: First and second heart sounds are normal some edema. LUNGS: Respiratory rate normal; decreased breath sounds n. ABDOMEN: Soft, distended nontender, liver spleen not palpable, no masses palpable. PSYCH: Patient is sleepy MUSCULOSKELETAL:No Clubbing/cyanosis;muscles-grossly intact INVESTIGATIONS, reviewed in the clinical context: March 23: White count 7.8 hemoglobin 10.2 platelets 121 potassium 4 BUN 37 creatinine 2.11 AST 62 ALT 68 March 22: White count 10.2 hemoglobin 10.8 platelets 150 March 21: White count 10.4 hemoglobin 5.6 hemoglobin 220 potassium 4.2 BUN [address] head cervical spine: Negative for fracture Assessment plan: -Acute severe blood loss anemia. Patient has significant bleeding about a week ago. After a fall. Required stitches to the arm. He was admitted to [facility] for UTI. Now presents with hemoglobin of 5.6. No further bleeding reported. 3 units of blood ordered from the ER. -Acute delirium in a patient with dementia multifactorial Risperdal discontinued -Late onset Alzheimer's dementia Namenda-will be discontinued given advance. -Rule out other source of bleed. GI services not available in the hospital. Per surgery: Scheduled for EGD colonoscopy on Tuesday -Coronary artery disease prior history of stent in February 2021. And coronary bypass in 1987 9089 Aspirin and plavix held -Permanent pacemaker -Chronic congestive heart failure, EF not known -COPD no prior smoker -Hyperlipidemia -DVT prophylaxis SCD -Full code - is a decision maker for the patient. Does not have any official papers. Asked to do so. Risperdal discontinued as requested per family. Pending endoscopy. Past Medical History Past Medical History: Coronary Artery Disease (CAD), Heart Failure, COPD, Dementia, Eye Disorder, Hyperlipidemia, Myocardial Infarction ([place]) Additional Past Medical History / Comment(s): Macular degeneration, [place] X2 Last Myocardial Infarction Date:: 1988 History of Any Multi-Drug Resistant Organisms: None Reported Past Surgical History: Coronary Bypass/CABG, Hernia Repair, Pacemaker Additional Past Surgical History / Comment(s): Double bypass 1979, triple bypass in 1989, AAA repair in 2000, pacermaker in 2001, hernia repair in 2008, bilateral endarterectomies 2019 Past Anesthesia/Blood Transfusion Reactions: No Reported Reaction Type of Cardiac Device: Permanent Pacemaker Device Placement Date:: 2001 Past Psychological History: No Psychological Hx Reported Smoking Status: Former smoker Past Alcohol Use History: None Reported Past Drug Use History: None Reported
--- NOTE | 2024-03-24 22:34 | P.PN ---
Subjective Patient seen and evaluated at bedside. No pain reported, no acute events from nursing staff. Objective - Vital Signs Vital signs: Vital Signs Temp 98.2 F 03/24/24 20:00 Pulse 81 03/24/24 20:00 Resp 20 03/24/24 20:00 BP 120/56 03/24/24 20:00 Pulse Ox 97 03/24/24 20:00 FiO2 Intake & Output 03/24/24 03/24/24 03/25/24 06:59 18:59 06:59 Intake Total 540 40 Output Total 450 950 Balance 90 -910 Weight 61.5 kg Intake: IV 40 Invasive Line 1 20 Invasive Line 2 20 Oral 540 Output: Urine 450 950 Other: Voiding Method External Catheter External Catheter External Catheter - Exam gen: nad cv: rrr pul: non labored breathing abd: soft, distended, non tender to palpation - Labs CBC & Chem 7: 03/23/24 06:12 03/23/24 06:12 Labs: Microbiology - Last 24 Hours (Table) 03/21/24 23:30 Blood Culture - Preliminary Blood 03/21/24 23:51 Blood Culture - Preliminary Blood Assessment and Plan Assessment: ASSESSMENT: 1. Acute blood loss anemia 2. Coronary artery disease 3. Chronic antiplatelet therapy 4. History of myocardial infarction PLAN: 1. Upper endoscopy and colonoscopy for acute anemia. 2. Hold antiplatelet therapy including anticoagulants. 3. Monitor for signs of bleeding. Time with Patient: Less than 30
[2024-03-25 05:59] LABS: Basophils % (A) 0 %; Eosinophils # (A) 0.1 k/uL (0-0.7); Eosinophils % (A) 2 %; HCT 33.1 % (39.0-53.0); HGB 10.6 gm/dL (13.0-17.5); Hypochromasia Marked; Lymphocytes # (A) 0.4 k/uL (1.0-4.8); Lymphocytes % (A) 7 %; MCH 31.9 pg (25.0-35.0); MCV 99.8 fL (80.0-100.0); Macrocytosis Slight; Mean Platelet Volume 8.2; Monocytes # (A) 0.5 k/uL (0-1.0); Monocytes % (A) 8 %; Neutrophils # (A) 4.8 k/uL (1.3-7.7); Neutrophils % (A) 80 %; Platelet Count 150 k/uL (150-450); RBC 3.32 m/uL (4.30-5.90); RDW 14.7 % (11.5-15.5)
[2024-03-25] MEDS: PANTOPRAZOLE 40 MG TABLET PO SCH (06:01)
[2024-03-25 06:11] LABS: African American GFR (CKD) 32 (>60 ml/min/1.73 sqM); Anion Gap 4 mmol/L; Blood Urea Nitrogen 38 mg/dL (9-20); Calcium 8.4 mg/dL (8.4-10.2); Carbon Dioxide 31 mmol/L (22-30); Chloride 113 mmol/L (98-107); Glucose 100 mg/dL (74-99); Non-African American GFR(CKD) 28 (>60 ml/min/1.73 sqM); Potassium 3.6 mmol/L (3.5-5.1); Sodium 148 mmol/L (137-145)
[2024-03-25] MEDS: FUROSEMIDE 40 MG TAB PO SCH (10:01)
[2024-03-25 11:16] LABS: Vitamin B12 >3600.0 pg/mL (200.0-944.0)
--- NOTE | 2024-03-25 12:10 | P.PN ---
Progress Note - Text Progress Note Date: 03/25/24 Chief Complaint: Increased weakness decreased appetite This is a 88-year-old patient, follows with Dr. Radu Qiu. Most of the history is obtained by the at the bedside. Patient was seen recently discharged from [facility] on [facility] 4 days ago. He was there for UTI. Patient appetite has decreased. Patient progressively became more weak. At baseline patient does have a lift chair. Was not even able to get up and the could not help him. About a week ago he had taken a fall and had a lot of bleeding. At [facility] he was found to have anemia but not enough for blood transfusion. When he presented a hemoglobin was 5.6. 3 units of blood was ordered from the ER. No overt evidence of bleeding or black stools or blood per rectum noted here. Today actually ate a bit better. Patient has underlying dementia. Delirious today. Patient has a pacemaker and has a stent in 2020. March 23: Received Risperdal last night. Patient did wake up 2-3 times last night. Declined to eat this morning. March 24: Had a lengthy discussion patient's at the bedside. Lucina son also joined. Dose of Risperdal are discussed. Initially was decided to cut back dose 0.5 mg. Later the nurse called to say that family would prefer to stop the Risperdal. Has discontinued. Patient rather sleepy this morning from overnight. Sleep hygiene/sleep cycle discussed pending endoscopy by surgery on TuesdayMarch 25: Patient did not receive any sedatives last night. Sleep is somewhat restless. Sleepy this morning. Patient's and son at the bedside. They do not want any kind of sedatives or antipsychotics. Did inform that the patient will be respected. Lengthy discussion ensued patient overall condition is not too good. Dementia with delirium present. Will see how he does. It has been over 24 hours since Risperdal was given. Family to help out at home the . Alternatives to be looked. Given his confusion not a good candidate for rehab. Social work will be involved. Probably will postpone endoscopy for outpatient. As also required some sedative for the procedure. CODE STATUS discussed changed to DNR Active Medications Acetaminophen (Acetaminophen Tab 500 Mg Tab) 500 mg PO Q8HR PRN PRN Reason: Fever and/ or Pain Last Admin: 03/23/24 08:51 Dose: 500 mg Atorvastatin Calcium (Atorvastatin 80 Mg Tab) 80 mg PO DAILY [facility] Last Admin: 03/25/24 10:01 Dose: 80 mg Finasteride (Finasteride 5 Mg Tab) 5 mg PO DAILY [facility] Last Admin: 03/25/24 10:00 Dose: 5 mg Furosemide (Furosemide 40 Mg Tab) 40 mg PO DAILY [facility] Last Admin: 03/25/24 10:01 Dose: 40 mg Metoprolol Succinate (Metoprolol Succinate (Er) 25 Mg Tab.Er.24h) 25 mg PO DAILY [facility] Last Admin: 03/25/24 10:01 Dose: 25 mg Midodrine (Midodrine 5 Mg Tab) 5 mg PO AC-BID [facility] Last Admin: 03/25/24 06:01 Dose: 5 mg Naloxone HCl (Naloxone 0.4 Mg/Ml 1 Ml Vial) 0.2 mg IV Q2M PRN PRN Reason: Opioid Reversal Pantoprazole Sodium (Pantoprazole 40 Mg Tablet) 40 mg PO AC-BRKFST [facility] Last Admin: 03/25/24 06:01 Dose: Not Given Social history: Former smoker. Lives with his . Physical examination: VITAL SIGNS: 97.9, 81, 20, 97/56, 94% on 4 L GENERAL: Somewhat delirious EYES: Pupils equal. Conjunctiva rashaad l. HEENT: External appearance of nose and ears normal, oral cavity grossly normal. NECK: JVD unable to assess raised; masses not palpable. HEART: First and second heart sounds are normal some edema. LUNGS: Respiratory rate normal; decreased breath sounds n. ABDOMEN: Soft, distended nontender, liver spleen not palpable, no masses palpable. PSYCH: Delirious, arousable MUSCULOSKELETAL:No Clubbing/cyanosis;muscles-grossly intact INVESTIGATIONS, reviewed in the clinical context: March 25: White count 6 hemoglobin 10.6 platelets 150 potassium 3.6 BUN 38 creatinine 2.06 March 23: White count 7.8 hemoglobin 10.2 platelets 121 potassium 4 BUN 37 creatinine 2.11 AST 62 ALT 68 March 22: White count 10.2 hemoglobin 10.8 platelets 150 March 21: White count 10.4 hemoglobin 5.6 hemoglobin 220 potassium 4.2 BUN [address] head cervical spine: Negative for fracture Assessment plan: -Acute severe blood loss anemia. Patient has significant bleeding about a week ago. After a fall. Required stitches to the arm. He was admitted to [facility] for UTI. Now presents with hemoglobin of 5.6. No further bleeding reported. 3 units of blood given -Acute delirium in a patient with dementia multifactorial: Slow to respond Risperdal discontinued -Late onset Alzheimer's dementia Namenda-will be discontinued given advance dementia. -Rule out other source of bleed. GI services not available in the hospital. Per surgery: Scheduled for EGD colonoscopy on Tuesday Given patient's clinical condition will defer EGD colonoscopy outpatient -Coronary artery disease prior history of stent in February 2021. And coronary bypass in 1987 9089 Aspirin and plavix held -Permanent pacemaker -Chronic congestive heart failure, EF not known -COPD no prior smoker -Hyperlipidemia -DVT prophylaxis SCD -Full code - is a decision maker for the patient. Does not have any official papers. Asked to do so. Lengthy discussion with patient's and son at the bedside. Questions answered. Patient not to receive any sedatives or antipsychotics for now. Advance care planning [March 25]: Given patient's clinical sufficient this was discussed with the and son at the bedside. Several questions answered including feeding. does not really want a feeding tube. Oral intake to be encouraged. Have decided to proceed to make the patient DNR. Time spent about 25 minutes Past Medical History Past Medical History: Coronary Artery Disease (CAD), Heart Failure, COPD, Dementia, Eye Disorder, Hyperlipidemia, Myocardial Infarction ([place]) Additional Past Medical History / Comment(s): Macular degeneration, [place] X2 Last Myocardial Infarction Date:: 1988 History of Any Multi-Drug Resistant Organisms: None Reported Past Surgical History: Coronary Bypass/CABG, Hernia Repair, Pacemaker Additional Past Surgical History / Comment(s): Double bypass 1979, triple bypass in 1989, AAA repair in 2000, pacermaker in 2001, hernia repair in 2008, bilateral endarterectomies 2019 Past Anesthesia/Blood Transfusion Reactions: No Reported Reaction Type of Cardiac Device: Permanent Pacemaker Device Placement Date:: 2001 Past Psychological History: No Psychological Hx Reported Smoking Status: Former smoker Past Alcohol Use History: None Reported Past Drug Use History: None Reported
[2024-03-25] MEDS: POTASSIUM CHLORIDE ER 20 MEQ TAB.ER PO STA (12:50)
[2024-03-25] MEDS: PEG 3350 (236 GM/BTL) + LYTES 4,000 ML BOTTLE PO ONE (14:12)
--- NOTE | 2024-03-25 14:14 | P.PN ---
Subjective Progress Note Date: 03/25/24 CHIEF COMPLAINT: Anemia HISTORY OF PRESENT ILLNESS: The patient is a 88-year-old male admitted for anem ia, hemoglobin 5.6. Since admission, hemoglobin has been stable at 10.6. Family at bedside has requested cancellation of his upper and lower endoscopy due to his instability. Per medicine also discontinuing upper and lower endoscopy also requested. ROS: No reports of nausea and vomiting. No fevers or chills. No new chest pain. History of Plavix use for coronary artery disease. History of myocardial infarction PHYSICAL EXAM: VITAL SIGNS: Reviewed CONSTITUTIONAL: Well developed and in no acute distress. EYES: Conjuctivae without sclera icterus. Extraocular movements grossly intact. HEAD, EARS, NOSE, THROAT: Moist buccal mucosa. Head is atraumatic, normocephalic. Hears conversational speech. No nasal drainage. RESPIRATORY: Non-labored respirations and equal bilateral excursions. CARDIOVASCULAR: Palpable 2+ radial pulses. ABDOMEN: No peritonitis. MUSCULOSKELETAL: No gross deformity of the lower extremities noted. No clubbing. No cyanosis. SKIN: Good skin turgor. Well perfused. NEUROLOGIC: Cranial nerves II through XII grossly intact. No focal or lateralizing signs. PSYCH: Alert and oriented to person. CLINICAL LABS: Reviewed. Hemoglobin of 5.6-10.2. Hemoglobin up to 10.2-10.6 today. ASSESSMENT: 1. Acute blood loss anemia 2. Coronary artery disease 3. Chronic antiplatelet therapy 4. History of myocardial infarction 5. Confusion PLAN: 1. Per request of both patient's family and medicine, upper and lower endoscopy was canceled due to patient's global confusion and disorientation. Objective - Vital Signs Vital signs: Vital Signs Temp 97.9 F 03/25/24 11:41 Pulse 81 03/25/24 11:41 Resp 20 03/25/24 11:41 BP 97/56 03/25/24 11:41 Pulse Ox 94 L 03/25/24 11:41 FiO2 Intake & Output 03/24/24 03/25/24 03/25/24 18:59 06:59 18:59 Intake Total 40 240 20 Output Total 950 800 Balance -910 -560 20 Weight 56 kg Intake: IV 40 20 Invasive Line 1 20 10 Invasive Line 2 20 10 Oral 240 Output: Urine 950 800 Other: Voiding Method External Catheter External Catheter External Catheter - Labs CBC & Chem 7: 03/25/24 05:33 03/25/24 05:33 Labs: Abnormal Lab Results - Last 24 Hours (Table) 03/25/24 03/25/24 Range/Units 05:33 05:33 RBC 3.32 L (4.30-5.90) m/uL Hgb 10.6 L (13.0-17.5) gm/dL Hct 33.1 L (39.0-53.0) % Lymphocytes # 0.4 L (1.0-4.8) k/uL Sodium 148 H (137-145) mmol/L Chloride 113 H (98-107) mmol/L Carbon Dioxide 31 H (22-30) mmol/L BUN 38 H (9-20) mg/dL Creatinine 2.06 H (0.66-1.25) mg/dL Glucose 100 H (74-99) mg/dL Vitamin B12 >3600.0 H (200.0-944.0) pg/mL Microbiology - Last 24 Hours (Table) 03/21/24 23:30 Blood Culture - Preliminary Blood 03/21/24 23:51 Blood Culture - Preliminary Blood
[2024-03-25 20:30] VITALS: TEMP 97.9
[2024-03-25 23:37] VITALS: PULSE 71; RESP 20
[2024-03-26 03:12] VITALS: BP 105/59
--- NOTE | 2024-03-26 10:11 | P.PN ---
Progress Note - Text Progress Note Date: 03/26/24 Chief Complaint: Increased weakness decreased appetite This is a 88-year-old patient, follows with Dr. Radu Qiu. Most of the history is obtained by the at the bedside. Patient was seen recently discharged from [facility] 4 days ago. He was there for UTI. Patient appetite has decreased. Patient progressively became more weak. At baseline patient does have a lift chair. Was not even able to get up and the could not help him. About a week ago he had taken a fall and had a lot of bleeding. At [facility] he was found to have anemia but not enough for blood transfusion. When he presented a hemoglobin was 5.6. 3 units of blood was ordered from the ER. No overt evidence of bleeding or black stools or blood per rectum noted here. Today actually ate a bit better. Patient has underlying dementia. Delirious today. Patient has a pacemaker and has a stent in 2020. March 23: Received Risperdal last night. Patient did wake up 2-3 times last night. Declined to eat this morning. March 24: Had a lengthy discussion patient's at the bedside. Lucina son also joined. Dose of Risperdal are discussed. Initially was decided to cut back dose 0.5 mg. Later the nurse called to say that family would prefer to stop the Risperdal. Has discontinued. Patient rather sleepy this morning from overnight. Sleep hygiene/sleep cycle discussed pending endoscopy by surgery on TuesdayMarch 25: Patient did not receive any sedatives last night. Sleep is somewhat restless. Sleepy this morning. Patient's and son at the bedside. They do not want any kind of sedatives or antipsychotics. Did inform that the patient will be respected. Lengthy discussion ensued patient overall condition is not too good. Dementia with delirium present. Will see how he does. It has been over 24 hours since Risperdal was given. Family to help out at home the . Alternatives to be looked. Given his confusion not a good candidate for rehab. Social work will be involved. Probably will postpone endoscopy for outpatient. As also required some sedative for the procedure. CODE STATUS discussed changed to DNR March 26: Patient sleepy this morning. at the bedside. Patient did wake up. A bit lethargic. Reminded the that if patient does not really follow commands he will not be candidate for rehab. Spoke to the high school social studies tutor. Looking at options. Eating occasionally That Active Medications Acetaminophen (Acetaminophen Tab 500 Mg Tab) 500 mg PO Q8HR PRN PRN Reason: Fever and/ or Pain Last Admin: 03/25/24 18:06 Dose: 500 mg Atorvastatin Calcium (Atorvastatin 80 Mg Tab) 80 mg PO DAILY [facility] Last Admin: 03/26/24 09:44 Dose: Not Given Finasteride (Finasteride 5 Mg Tab) 5 mg PO DAILY [facility] Last Admin: 03/26/24 09:44 Dose: Not Given Metoprolol Succinate (Metoprolol Succinate (Er) 25 Mg Tab.Er.24h) 25 mg PO DAILY [facility] Last Admin: 03/26/24 09:44 Dose: Not Given Midodrine (Midodrine 5 Mg Tab) 5 mg PO AC-BID [facility] Last Admin: 03/26/24 09:43 Dose: Not Given Naloxone HCl (Naloxone 0.4 Mg/Ml 1 Ml Vial) 0.2 mg IV Q2M PRN PRN Reason: Opioid Reversal Pantoprazole Sodium (Pantoprazole 40 Mg Tablet) 40 mg PO AC-BRKFST [facility] Last Admin: 03/26/24 06:20 Dose: Not Given Social history: Former smoker. Lives with his . Physical examination: VITAL SIGNS: 97.9, 71, 20, 105 x 59, 96% on 5 L GENERAL: Admits repeat but does open eyes. EYES: Pupils equal. Conjunctiva rashaad l. HEENT: External appearance of nose and ears normal, oral cavity grossly normal. NECK: JVD unable to assess raised; masses not palpable. HEART: First and second heart sounds are normal some edema. LUNGS: Respiratory rate normal; decreased breath sounds n. ABDOMEN: Soft, distended nontender, liver spleen not palpable, no masses palpable. PSYCH: Sleepy arousable MUSCULOSKELETAL:No Clubbing/cyanosis;muscles-grossly intact INVESTIGATIONS, reviewed in the clinical context: March 25: White count 6 hemoglobin 10.6 platelets 150 potassium 3.6 BUN 38 creatinine 2.06 March 23: White count 7.8 hemoglobin 10.2 platelets 121 potassium 4 BUN 37 creatinine 2.11 AST 62 ALT 68 March 22: White count 10.2 hemoglobin 10.8 platelets 150 March 21: White count 10.4 hemoglobin 5.6 hemoglobin 220 potassium 4.2 BUN [address] head cervical spine: Negative for fracture Assessment plan: -Acute severe blood loss anemia. Patient has significant bleeding about a week ago. After a fall. Required stitches to the arm. He was admitted to [facility] for UTI. Now presents with hemoglobin of 5.6. No further bleeding reported. 3 units of blood given -Acute delirium in a patient with dementia multifactorial: Slow to respond Risperdal discontinued -Late onset Alzheimer's dementia Namenda-- discontinued given advance dementia. -Rule out other source of bleed. GI services not available in the hospital. Per surgery: Scheduled for EGD colonoscopy on Tuesday Given patient's clinical condition will defer EGD colonoscopy outpatient -Coronary artery disease prior history of stent in February 2021. And coronary bypass in 1987 9089 Aspirin and plavix held -Permanent pacemaker -Chronic congestive heart failure, EF not known -COPD no prior smoker -Hyperlipidemia -DVT prophylaxis SCD -No code - is a decision maker for the patient. Does not have any official papers. Asked to do so. Advance care planning [March 25]: Given patient's clinical sufficient this was discussed with the and son at the bedside. Several questions answered including feeding. does not really want a feeding tube. Oral intake to be encouraged. Have decided to proceed to make the patient DNR. Discussed with the at the bedside. Prognosis remains guarded. Spoke to high school social studies tutor. Looking at disposition plan. Because of patient's cognitive impairment rehab could be a problem. Past Medical History Past Medical History: Coronary Artery Disease (CAD), Heart Failure, COPD, Dementia, Eye Disorder, Hyperlipidemia, Myocardial Infarction ([place]) Additional Past Medical History / Comment(s): Macular degeneration, [place] X2 Last Myocardial Infarction Date:: 1988 History of Any Multi-Drug Resistant Organisms: None Reported Past Surgical History: Coronary Bypass/CABG, Hernia Repair, Pacemaker Additional Past Surgical History / Comment(s): Double bypass 1979, triple bypass in 1989, AAA repair in 2000, pacermaker in 2001, hernia repair in 2008, bilatera l endarterectomies 2019 Past Anesthesia/Blood Transfusion Reactions: No Reported Reaction Type of Cardiac Device: Permanent Pacemaker Device Placement Date:: 2001 Past Psychological History: No Psychological Hx Reported Smoking Status: Former smoker Past Alcohol Use History: None Reported Past Drug Use History: None Reported
[2024-03-26] MEDS: SCOPOLAMINE 1 MG/72 HR PATCH TRANSDERM SCH (12:17)
--- NOTE | 2024-03-26 14:56 | P.PN ---
Subjective Progress Note Date: 03/26/24 CHIEF COMPLAINT: Anemia HISTORY OF PRESENT ILLNESS: The patient is a 88-year-old male admitted for anemia, hemoglobin 5.6. Since admission hemoglobin has been stable at 10.6. Patient has had no reported blood in the stools. He has been confused. EGD and colonoscopy canceled for today per family and medicine service request. Patient does appear more short of breath. PHYSICAL EXAM: VITAL SIGNS: Reviewed. GENERAL: no acute distress. ABDOMEN: Soft. Nondistended. Nontender. NEUROLOGIC: confused ASSESSMENT: 1. Acute blood loss anemia 2. Coronary artery disease 3. Chronic antiplatelet therapy 4. History of myocardial infarction 5. Confusion PLAN: -Colonoscopy and EGD canceled for today per request of both patient's family and medicine service. Patient is more confused. Physician Lab Rn note has been reviewed by physician. Signing provider agrees with the documented findings, assessment, and plan of care. Objective - Vital Signs Vital signs: Vital Signs Temp 97.9 F 03/25/24 20:29 Pulse 71 03/26/24 03:08 Resp 20 03/26/24 03:08 BP 105/59 03/26/24 03:08 Pulse Ox 96 03/26/24 09:16 FiO2 Intake & Output 03/25/24 03/26/24 03/26/24 18:59 06:59 18:59 Intake Total 20 Output Total 600 450 Balance -580 -450 Weight 61 kg Intake: IV 20 Invasive Line 1 10 Invasive Line 2 10 Output: Urine 600 450 Other: Voiding Method External Catheter External Catheter External Catheter # Bowel Movements 0 - Labs CBC & Chem 7: 03/25/24 05:33 03/25/24 05:33
--- NOTE | 2024-03-26 15:21 | P.DS ---
Providers Date of admission: 03/22/24 01:09 Expected date of discharge: 03/26/24 Attending physician: Popeye Bowles Consults: 03/22/24 11:31 Consult Physician Routine Consulting Provider: Billy Hernandez Consult Reason/Comments: poss gi bleed Do you want consulting provider notified?: Yes 03/22/24 14:15 Consult Physician Routine Consulting Provider: Tyson Cornell Consult Reason/Comments: rehab for IPR or recommendations Do you want consulting provider notified?: Yes Primary care physician: Radu [facility] Course: Chief Complaint: Increased weakness decreased appetite This is a 88-year-old patient, follows with Dr. Radu Qiu. Most of the history is obtained by the at the bedside. Patient was seen recently discharged from [facility] 4 days ago. He was there for UTI. Patient appetite has decreased. Patient progressively became more weak. At baseline patient does have a lift chair. Was not even able to get up and the could not help him. About a week ago he had taken a fall and had a lot of bleeding. At [facility] he was found to have anemia but not enough for blood transfusion. When he presented a hemoglobin was 5.6. 3 units of blood was ordered from the ER. No overt evidence of bleeding or black stools or blood per rectum noted here. Today actually ate a bit better. Patient has underlying dementia. Delirious today. Patient has a pacemaker and has a stent in 2020. March 23: Received Risperdal last night. Patient did wake up 2-3 times last night. Declined to eat this morning. March 24: Had a lengthy discussion patient's at the bedside. Lucina son also joined. Dose of Risperdal are discussed. Initially was decided to cut back dose 0.5 mg. Later the nurse called to say that family would prefer to stop the Risperdal. Has discontinued. Patient rather sleepy this morning from overnight. Sleep hygiene/sleep cycle discussed pending endoscopy by surgery on TuesdayMarch 25: Patient did not receive any sedatives last night. Sleep is somewhat restless. Sleepy this morning. Patient's and son at the bedside. They do not want any kind of sedatives or antipsychotics. Did inform that the patient will be respected. Lengthy discussion ensued patient overall condition is not too good. Dementia with delirium present. Will see how he does. It has been over 24 hours since Risperdal was given. Family to help out at home the . Alternatives to be looked. Given his confusion not a good candidate for rehab. Social work will be involved. Probably will postpone endoscopy for outpatient. As also required some sedative for the procedure. CODE STATUS discussed changed to DNR March 26: Patient sleepy this morning. at the bedside. Patient did wake up. A bit lethargic. Reminded the that if patient does not really follow commands he will not be candidate for rehab. Spoke to the social security assessor. Looking at options. Eating occasionally Addendum: Later in the morning patient declined and patient . Nurse and the was present. I went and talked to the . Questions answered. Patient's was thankful for the care. Social history: Former smoker. Lives with his . INVESTIGATIONS, reviewed in the clinical context: March 25: White count 6 hemoglobin 10.6 platelets 150 potassium 3.6 BUN 38 creatinine 2.06 March 23: White count 7.8 hemoglobin 10.2 platelets 121 potassium 4 BUN 37 creatinine 2.11 AST 62 ALT 68 March 22: White count 10.2 hemoglobin 10.8 platelets 150 March 21: White count 10.4 hemoglobin 5.6 hemoglobin 220 potassium 4.2 BUN [address] head cervical spine: Negative for fracture Cause of : Coronary artery disease Assessment plan: -Acute severe blood loss anemia. Patient has significant bleeding about a week ago. After a fall. Required stitches to the arm. He was admitted to [facility] for UTI. Now presents with hemoglobin of 5.6. No further bleeding reported. 3 units of blood given -Acute delirium in a patient with dementia multifactorial: Slow to respond Risperdal discontinued -Late onset Alzheimer's dementia Namenda-- discontinued given advance dementia. -Rule out other source of bleed. GI services not available in the hospital. Per surgery: Scheduled for EGD colonoscopy on Tuesday Given patient's clinical condition will defer EGD colonoscopy outpatient -Coronary artery disease prior history of stent in February 2021. And coronary bypass in 1987 9089 Aspirin and plavix held -Permanent pacemaker -Chronic congestive heart failure, EF not known -COPD no prior smoker -Hyperlipidemia -DVT prophylaxis SCD -No code - is a decision maker for the patient. Does not have any official papers. Asked to do so. Advance care planning [March 25]: Given patient's clinical sufficient this was discussed with the and son at the bedside. Several questions answered including feeding. does not really want a feeding tube. Oral intake to be encouraged. Have decided to proceed to make the patient DNR. Disposition: Patient Past Medical History Past Medical History: Coronary Artery Disease (CAD), Heart Failure, COPD, Dementia, Eye Disorder, Hyperlipidemia, Myocardial Infarction ([place]) Additional Past Medical History / Comment(s): Macular degeneration, [place] X2 Last Myocardial Infarction Date:: 1988 History of Any Multi-Drug Resistant Organisms: None Reported Past Surgical History: Coronary Bypass/CABG, Hernia Repair, Pacemaker Additional Past Surgical History / Comment(s): Double bypass 1979, triple bypass in 1989, AAA repair in 2000, pacermaker in 2001, hernia repair in 2008, bilateral endarterectomies 2019 Past Anesthesia/Blood Transfusion Reactions: No Reported Reaction Type of Cardiac Device: Permanent Pacemaker Device Placement Date:: 2001 Past Psychological History: No Psychological Hx Reported Smoking Status: Former smoker Past Alcohol Use History: None Reported Past Drug Use History: None Reported Plan - Discharge Summary Discharge Rx Participant: No New Discharge Prescriptions: No Action Clopidogrel [Plavix] 75 mg PO DAILY Metoprolol Succinate (ER) [Toprol XL] 25 mg PO DAILY Aspirin [Adult Low Dose Aspirin EC] 81 mg PO DAILY cefUROXime axetiL [Ceftin] 500 mg PO BID Midodrine [ProAmatine] 5 mg PO BID Potassium Chloride ER [K-Dur 20] 20 meq PO DAILY Furosemide [Lasix] 40 mg PO BID@0900,1700 Memantine [Namenda] 10 mg PO BID Losartan [Cozaar] 25 mg PO DAILY Finasteride [Proscar] 5 mg PO DAILY Rosuvastatin Calcium 40 mg PO DAILY Discharge Medication List Aspirin [Adult Low Dose Aspirin EC] 81 mg PO DAILY 03/22/24 [History] Clopidogrel [Plavix] 75 mg PO DAILY 03/22/24 [History] Finasteride [Proscar] 5 mg PO DAILY 03/22/24 [History] Furosemide [Lasix] 40 mg PO BID@0900,1700 03/22/24 [History] Losartan [Cozaar] 25 mg PO DAILY 03/22/24 [History] Memantine [Namenda] 10 mg PO BID 03/22/24 [History] Metoprolol Succinate (ER) [Toprol XL] 25 mg PO DAILY 03/22/24 [History] Midodrine [ProAmatine] 5 mg PO BID 03/22/24 [History] Potassium Chloride ER [K-Dur 20] 20 meq PO DAILY 03/22/24 [History] Rosuvastatin Calcium 40 mg PO DAILY 03/22/24 [History] cefUROXime axetiL [Ceftin] 500 mg PO BID 03/22/24 [History] Follow up Appointment(s)/Referral(s): Farhad Qiu MD [STAFF PHYSICIAN] - 1-2 days Discharge Disposition: - Preliminary Cause of Preliminary Cause of : Coronary artery disease
--- NOTE | 2024-03-28 14:41 | CDI ---
Documentation Clarification Form Date: 03/28/2024 02:13:09 PM From: Sarah Amador RN, CCDS Phone: [phone] Admit Date: 03/22/2024 01:09:00 AM Patient Name: Bang Han Visit Number: [id number] Discharge Date: 03/26/2024 02:51:00 PM ATTENTION: The Clinical Documentation Specialists (CDI) and [facility] Coding Staff appreciate your assistance in clarifying documentation. Please respond to the clarification below the line at the bottom and electronically sign. The CDI & [facility] Coding staff will review the response and follow-up if needed. Please note: Queries are made part of the Legal Health Record. If you have any questions, please contact the author of this message via ITS. Dr. Popeye Bowles Your patient had significant decrease in pulse ox and required increasing levels of supplemental oxygen. Based on this information and the findings below, is there an additional diagnosis that is clinically appropriate for this patient? History/Risk Factors: COPD no prior smoker, late onset dementia, CHF, CAD. Presented with significantly low Hgb. Work-up for source of bleed. The patient . Clinical Indicators: 03/21-03/25 Hgb: 5.6-10.8-10.6 03/24 RR: 24 03/25 RR: 26 03/24 Pulse oximetry: 86% 03/25 Pulse oximetry: 83% 03/25 IM: "patient overall condition is not too good. Treatment: O2: 3-5L NC 03/24-03/26, Non-rebreather on 03/25 Is there an additional diagnosis that is clinically appropriate for this patient? [ + ] Acute Hypoxic Respiratory Failure [ ] Acute Hypercapnic Respiratory Failure [ ] No additional diagnosis/not clinically significant [ ] Other Diagnosis, please specify [ ] Unable to determine MTDD
--- NOTE | 2024-03-28 15:01 | CDI ---
Documentation Clarification Form Date: 03/28/2024 02:41:37 PM From: Sarah Amador RN, CCDS Phone: [phone] Admit Date: 03/22/2024 01:09:00 AM Patient Name: Bang Han Visit Number: [id number] Discharge Date: 03/26/2024 02:51:00 PM ATTENTION: The Clinical Documentation Specialists (CDI) and [facility] Coding Staff appreciate your assistance in clarifying documentation. Please respond to the clarification below the line at the bottom and electronically sign. The CDI & [facility] Coding staff will review the response and follow-up if needed. Please note: Queries are made part of the Legal Health Record. If you have any questions, please contact the author of this message via ITS. Dr. Popeye Bowles The patient had significant bleeding after a fall and was on anticoagulation. Based on this information and the findings below, is there an additional diagnosis that is clinically appropriate for this patient? History/Risk Factors: COPD no prior smoker, late onset dementia, CHF, CAD and CABG - takes ASA and Plavix. Presented with significantly low Hgb. Work-up for source of bleed. The patient . Clinical Indicators: 03/21-03/25 Hgb: 5.6-10.8-10.6 03/21-03/25 Hct: 18.0-34.2-33.1 H&P: "About a week ago he had taken a fall and had a lot of bleeding. When he presented hemoglobin was 5.6. 3 units of blood was ordered from the ER. No overt evidence of bleeding or black stools or blood per rectum noted. Coronary artery disease prior history of stent in February 2021 and coronary bypass in 1987. Hold off Aspirin and Plavix for now." 03/22 Surgery: Continue to hold Plavix. Add IV Protonix. Continue to monitor for any signs or symptoms of bleeding. Continue to monitor hemoglobin. Treatment: IV Protonix 40mg 03/22-03/23; hold Plavix; hold ASA; monitor H/H IV Fluid: 3L 0.9 NS IV boluses 03/21-03/23 Transfusion: 3 units PRBC's on 03/22 Is there an additional diagnosis that is clinically appropriate for this patient? [ ] Hemorrhage due to Aspirin and Plavix [ ] Coagulopathy due to Aspirin and Plavix [ + ] Other, please specify ___hemorrhage due to fall, prior to admission [ ] Unable to determine MTDD
--- NOTE | 2024-03-28 15:23 | CDI ---
Documentation Clarification Form Date: 03/28/2024 03:10:30 PM From: Sarah Amador RN, CCDS Phone: [phone] Admit Date: 03/22/2024 01:09:00 AM Patient Name: Bang Han Visit Number: [id number] Discharge Date: 03/26/2024 02:51:00 PM ATTENTION: The Clinical Documentation Specialists (CDI) and [facility] Coding Staff appreciate your assistance in clarifying documentation. Please respond to the clarification below the line at the bottom and electronically sign. The CDI & [facility] Coding staff will review the response and follow-up if needed. Please note: Queries are made part of the Legal Health Record. If you have any questions, please contact the author of this message via ITS. Dr. Popeye Bowles The patient had confusion and delirium. Additional clarification is requested. History/Risk Factors: COPD no prior smoker, late onset dementia, CHF, CAD and CABG - takes ASA and Plavix. Presented with significantly low Hgb. Work-up for source of bleed. The patient . Clinical Indicators: H&P: "Acute delirium in a patient with dementia multifactorial. Will try Risperdal at night. Late onset Alzheimer's dementia." 03/25 IM: "Given his confusion not a good candidate for rehab. Late onset Alzheimer's dementia." 03/26 IM: "A bit lethargic. Reminded the that if patient does not really follow commands he will not be candidate for rehab.." Labs: 03/21-03/25 Hgb: 5.6-10.8-10.6 03/21-03/25 Hct: 18.0-34.2-33.1 Treatment: IV Fluid: 3L 0.9 NS IV boluses 03/21-03/23; Risperdal 0.5mg po on 03/22; Risperdal 0.75mg po on 03/23 Transfusion: 3 units PRBC's on 03/22 Please clarify the diagnosis: [ ] Metabolic Encephalopathy due to low Hgb [ ] Toxic Encephalopathy due to medication effect [ + ] Delirium only [ + ] Late onset Dementia only [ ] Other, please specify [ ] Unable to determine MTDD
--- NOTE | 2024-03-28 15:33 | CDI ---
Documentation Clarification Form Date: 03/28/2024 03:24:02 PM From: Sarah Amador RN, CCDS Phone: [phone] Admit Date: 03/22/2024 01:09:00 AM Patient Name: Bang Han Visit Number: [id number] Discharge Date: 03/26/2024 02:51:00 PM ATTENTION: The Clinical Documentation Specialists (CDI) and [facility] Coding Staff appreciate your assistance in clarifying documentation. Please respond to the clarification below the line at the bottom and electronically sign. The CDI & [facility] Coding staff will review the response and follow-up if needed. Please note: Queries are made part of the Legal Health Record. If you have any questions, please contact the author of this message via ITS. Dr. Popeye Bowles Your patient has the documented diagnosis of unspecified CHF in the progress notes. Additional information regarding the type and acuity of CHF is requested. History/Risk Factors: COPD no prior smoker, late onset dementia, CHF, CAD and CABG - takes ASA and Plavix. Presented with significantly low Hgb. Work-up for source of bleed. The patient . Clinical Indicators: H&P and discharge summary: "Chronic congestive heart failure, EF not known." Discharge summary: "Preliminary Cause of : Coronary artery disease." 03/23 Echocardiogram Results: Moderate LV systolic dysfunction with an ejection fraction of 40%. Anteroseptal hypokinesis suggestive of prior myocardial infarction. Severe pulmonary hypertension. Moderate tricuspid regurgitation." 03/22 Chest X Ray: There is cardiomegaly with pulmonary venous congestion and scattered areas of infiltrate which may reflect acute pulmonary edema. Layering pleural effusion on the right and/or pleural parenchymal thickening. Treatment: Lasix 40mg po BID 03/22-03/24; Lasix 40mg po daily 03/25; Toprol XL po daily 03/22-03/25 In your professional opinion, can you please clarify the [acuity and type] of CHF if known? [ + ] Chronic Systolic Heart Failure (reduced EF) [ ] Chronic Diastolic Heart Failure (preserved EF) [ ] Chronic Systolic & Diastolic Heart Failure [ ] Other, please specify [ ] Unable to determine MTDD
== END 2024-03-26 14:51 | disposition expired | DRG 811 ==
LOC: EC 23:05 → 3SCARD 03-22 01:09
PROVIDERS: ADMIT Hospitalist; ATTEND Hospitalist
PROC: 30233N1 Transfusion of Nonautologous Red Blood Cells into Peripheral Vein, Percutaneous Approach (ICD-10-PCS; principal; 2024-03-22)
DX: D62 Acute posthemorrhagic anemia (principal); J96.01 Acute respiratory failure with hypoxia; N39.0 Urinary tract infection, site not specified; F05 Delirium due to known physiological condition; I50.22 Chronic systolic (congestive) heart failure; G30.1 Alzheimer's disease with late onset; E78.5 Hyperlipidemia, unspecified; F02.80 Dementia in other diseases classified elsewhere, unspecified severity, without behavioral disturbance, psychotic disturbance, mood disturbance, and anxiety; I11.0 Hypertensive heart disease with heart failure; I25.10 Atherosclerotic heart disease of native coronary artery without angina pectoris; I25.2 Old myocardial infarction; I08.1 Rheumatic disorders of both mitral and tricuspid valves; J44.9 Chronic obstructive pulmonary disease, unspecified; N40.0 Benign prostatic hyperplasia without lower urinary tract symptoms; Z66 Do not resuscitate; Z79.02 Long term (current) use of antithrombotics/antiplatelets; Z79.82 Long term (current) use of aspirin; Z79.899 Other long term (current) drug therapy; Z86.79 Personal history of other diseases of the circulatory system; Z87.891 Personal history of nicotine dependence; Z95.0 Presence of cardiac pacemaker; Z88.8 Allergy status to other drugs, medicaments and biological substances; Z95.1 Presence of aortocoronary bypass graft; Z87.19 Personal history of other diseases of the digestive system; Z86.73 Personal history of transient ischemic attack (TIA), and cerebral infarction without residual deficits; Z91.81 History of falling
CPT/HCPCS: 36415; 70450; 71045; 72125; 73502; 74176; 80048; 80053; 81001; 82607; 82746; 83735; 84100; 85025; 85027; 86850; 86900; 86901; 86920; 87040; 93306; 94760; 96360; 96361; 99291